=== PATIENT | female | born 1935 | race African-American/Black ===

== ENCOUNTER 2017-10-21 09:44 | Inpatient (IN) ==
[2017-10-21] MEDS ORDERED: DIPH/TET/ACEL PERT BOOSTER VACCINE 0.5 ML VIAL IM ONE ×2 (10:08→12:14)
[2017-10-21 11:05] LABS: Basophils % 0.1 % (0.0-0.8); Eosinophils # 0.1 10*3/uL (0.0-0.87); Eosinophils % 0.8 % (0.00-10.9); Hematocrit 25.8 VOL% (35.7-47.0); Hemoglobin 8.5 GM/DL (12.0-16.0); Immature Granulocytes % 0.4 %; Immature Granulocytes Absolute 0.03 #; Lymphocytes # 0.9 10*3/uL (1.4-4.0); Lymphocytes % 12.8 % (21.3-54.2); Mean Corpuscular HGB Conc 32.9 GM/DL (32-36); Mean Corpuscular Hemoglobin 30 PG (27-34); Mean Corpuscular Volume 89.6 FL (87-102); Mean Platelet Volume 10.4 FL (9.6-12.0); Monocytes # 0.8 10*3/uL (0.11-0.8); Monocytes % 11.1 % (1.7-12.7); Neutrophils # 5.3 10*3/uL (1.4-7.4); Neutrophils % 74.8 % (38.7-73.9); Platelet Count 220 T/CUMM (130-400); Red Blood Count 2.88 MC/CUMM (3.8-5.5); Red Cell Distribution Width 17.2 % (9.3-17.3); White Blood Count 7.1 T/CUMM (4-12)
[2017-10-21 11:17] LABS: INR 2.6
[2017-10-21 11:21] LABS: Apearance,Urine CLEAR (Clear); Bacteria,Urine Occasional /HPF (Few); Bilirubin,Urine Negative (Negative); Blood, Urine Negative (Negative); Glucose,Urine (UA) Negative (Negative); Ketones,Urine Negative (Negative); Mucus,Urine Occasional /LPF (Occasional); Nitrite,Urine Negative (Negative); Protein,Urine Negative; RBC,Urine <1 /HPF (0-4); Squamous Epithelial Cell,Urine Occasional /HPF (0-10); Urine Color Yellow (Yellow); Urine Specific Gravity 1.008 (1.001-1.035); Urine Urobilinogen < 2.0 EU/DL (0.2-1.0); WBC,Urine <1 /HPF (0-6)
[2017-10-21 11:24] LABS: PT Patient Result 26.1 SECS
[2017-10-21 11:25] LABS: Barbiturates Screen,Urine Negative (Negative); Benzodiazepines Screen,Urine Negative (Negative); Cannabinoid Screen,Urine Negative (Negative); Opiate Screen,Urine Negative (Negative); Phencyclidine Screen,Urine Negative (Negative)
[2017-10-21 11:48] LABS: Alanine Aminotransferase 25 U/L (13-56); Alkaline Phosphatase 144 U/L (45-117); Aspartate Amino Transferase 66 U/L (0-37); Blood Urea Nitrogen 34 MG/DL (7-18); Calcium 8.6 MG/DL (8.5-10.1); Glucose 168 MG/DL (74-106); Osmolality,Calculated 271.8 MOS/KG (273-304); Potassium 5.3 MMOL/L (3.5-5.1); Sodium 130 MMOL/L (136-145); Total Protein 7.9 G/DL (6.4-8.3); Troponin I Only < 0.015 NG/ML (0.00-0.045)
[2017-10-21] MEDS ORDERED: ceFAZolin 1,000 MG VIAL ONE (12:14)
[2017-10-21] MEDS ORDERED: LABETALOL 20 MG/4 ML SYRINGE IV PRN (14:15)
[2017-10-21] MEDS ORDERED: MORPHINE 2 MG/1 ML SYRINGE IV PRN (14:15)
[2017-10-21] MEDS ORDERED: ONDANSETRON 4 MG/2 ML VIAL IV PRN (14:15)
[2017-10-21] MEDS ORDERED: DEXTROSE 50% 25 GM/50 ML VIAL IV PRN (14:15)
[2017-10-21] MEDS ORDERED: GLUCAGON 1 MG VIAL IM PRN (14:15)
[2017-10-21] MEDS ORDERED: SODIUM POLYSTYRENE SULFATE 15 GM/60 ML BOTTLE RECTAL STA (14:31)
[2017-10-21] MEDS ORDERED: SODIUM POLYSTYRENE SULFATE 15 GM/60 ML BOTTLE ONE (17:56)
[2017-10-21] MEDS: SODIUM CHLORIDE 0.9% 1,000 ML IV SCH (21:28)
[2017-10-22 07:27] LABS: Basophils % 0.4 % (0.0-0.8); Eosinophils # 0.1 10*3/uL (0.0-0.87); Eosinophils % 1.7 % (0.00-10.9); Hematocrit 22.9 VOL% (35.7-47.0); Immature Granulocytes % 0.6 %; Immature Granulocytes Absolute 0.04 #; Lymphocytes # 1.1 10*3/uL (1.4-4.0); Lymphocytes % 16.3 % (21.3-54.2); Mean Corpuscular HGB Conc 33.6 GM/DL (32-36); Mean Corpuscular Hemoglobin 30 PG (27-34); Mean Corpuscular Volume 88.4 FL (87-102); Mean Platelet Volume 9.5 FL (9.6-12.0); Monocytes # 0.7 10*3/uL (0.11-0.8); Monocytes % 10.3 % (1.7-12.7); NRBC # 0.02 10*3/uL; Neutrophils # 4.9 10*3/uL (1.4-7.4); Neutrophils % 70.7 % (38.7-73.9); Platelet Count 184 T/CUMM (130-400); Red Blood Count 2.59 MC/CUMM (3.8-5.5); White Blood Count 6.9 T/CUMM (4-12)
[2017-10-22 07:35] LABS: Hemoglobin 7.7 GM/DL (12.0-16.0)
[2017-10-22 07:39] LABS: Calcium 8.3 MG/DL (8.5-10.1); Risk Ratio 2.42; VLDL CHOLESTEROL 8.6 MG/DL
[2017-10-22] MEDS: ASPIRIN EC 81 MG TABLET PO SCH ×2 (08:01→09:45)
[2017-10-22] MEDS: INSULIN LISPRO 100 UNIT/ML SUBCUT SCH ×5 (08:03→21:49)
[2017-10-22] MEDS ORDERED: SODIUM CHLORIDE 0.9% 1,000 ML IV PRN (08:20)
[2017-10-22] MEDS ORDERED: TUBERCULIN SKIN TEST 0.1 ML SYRINGE INTRADERM ONE (09:43)
[2017-10-22] MEDS: PANTOPRAZOLE 40 MG TABLET PO SCH (09:46)
[2017-10-22] MEDS: SODIUM CHLORIDE 0.9% 1,000 ML IV SCH (10:28)
[2017-10-22] MEDS ORDERED: FAMOTIDINE PO SCH (17:00)
[2017-10-22] MEDS ORDERED: PANTOPRAZOLE 40 MG TABLET PO SCH (17:00)
[2017-10-22] MEDS: LOSARTAN/HCTZ 50-12.5 MG TABLET PO SCH (19:26)
[2017-10-22] MEDS: BACITRACIN OINT 0.9 GM PACK TOP SCH (19:26)
[2017-10-22] MEDS: ZIPRASIDONE 20 MG CAPSULE PO SCH (19:26)
[2017-10-22] MEDS: FLUTICASONE 50 MCG NASAL SPRAY 16 GM BOTTLE BOTH NARES SCH (19:27)
[2017-10-22] MEDS: FAMOTIDINE 20 MG TABLET PO SCH (21:49)
[2017-10-22] MEDS: amLODIPine 10 MG TABLET PO SCH (21:49)
[2017-10-22] MEDS: AMITRIPTYLINE 100 MG TABLET PO SCH (21:49)
[2017-10-22 23:00] LABS: INR 2.1
[2017-10-22 23:01] LABS: PT Patient Result 21.9 SECS
[2017-10-23] MEDS: WARFARIN 4 MG TABLET PO SCH ×3 (00:26→18:19)
[2017-10-23 03:43] LABS: Basophils % 0.2 % (0.0-0.8); Eosinophils # 0.1 10*3/uL (0.0-0.87); Eosinophils % 1.4 % (0.00-10.9); Hematocrit 26.6 VOL% (35.7-47.0); Hemoglobin 9.1 GM/DL (12.0-16.0); Immature Granulocytes % 0.5 %; Immature Granulocytes Absolute 0.03 #; Lymphocytes # 1.1 10*3/uL (1.4-4.0); Lymphocytes % 16.5 % (21.3-54.2); Mean Corpuscular HGB Conc 34.2 GM/DL (32-36); Mean Corpuscular Hemoglobin 30 PG (27-34); Mean Corpuscular Volume 86.6 FL (87-102); Mean Platelet Volume 9.4 FL (9.6-12.0); Monocytes # 0.9 10*3/uL (0.11-0.8); Neutrophils # 4.5 10*3/uL (1.4-7.4); Neutrophils % 68.4 % (38.7-73.9); Platelet Count 177 T/CUMM (130-400); Red Blood Count 3.07 MC/CUMM (3.8-5.5); Red Cell Distribution Width 16.4 % (9.3-17.3); White Blood Count 6.6 T/CUMM (4-12)
[2017-10-23 04:05] LABS: Calcium 8.2 MG/DL (8.5-10.1); Osmolality,Calculated 272.1 MOS/KG (273-304); Potassium 3.8 MMOL/L (3.5-5.1)
[2017-10-23] MEDS: SODIUM CHLORIDE 0.9% 1,000 ML IV SCH ×2 (06:27→13:20)
[2017-10-23] MEDS: BACITRACIN OINT 0.9 GM PACK TOP SCH (08:42)
[2017-10-23] MEDS: FLUTICASONE 50 MCG NASAL SPRAY 16 GM BOTTLE BOTH NARES SCH (08:42)
[2017-10-23] MEDS: LOSARTAN/HCTZ 50-12.5 MG TABLET PO SCH (08:42)
[2017-10-23] MEDS: FAMOTIDINE 20 MG TABLET PO SCH ×2 (08:42→21:50)
[2017-10-23] MEDS: PANTOPRAZOLE 40 MG TABLET PO SCH ×2 (08:42→21:50)
[2017-10-23] MEDS: LINACLOTIDE 145 MCG CAPSULE PO SCH (08:42)
[2017-10-23] MEDS: ZIPRASIDONE 20 MG CAPSULE PO SCH ×2 (08:42→18:18)
[2017-10-23] MEDS: amLODIPine 10 MG TABLET PO SCH ×2 (08:42→21:50)
[2017-10-23] MEDS: ACETAMINOPHEN 325 MG TABLET PO PRN ×2 (08:50→21:51)
[2017-10-23] MEDS: INSULIN LISPRO 100 UNIT/ML SUBCUT SCH ×5 (10:45→21:55)
[2017-10-23] MEDS: AMITRIPTYLINE 100 MG TABLET PO SCH (21:50)
[2017-10-24 05:58] LABS: Basophils % 0.3 % (0.0-0.8); Eosinophils # 0.1 10*3/uL (0.0-0.87); Eosinophils % 1.1 % (0.00-10.9); Hematocrit 26.3 VOL% (35.7-47.0); Hemoglobin 8.8 GM/DL (12.0-16.0); Immature Granulocytes % 0.4 %; Immature Granulocytes Absolute 0.03 #; Lymphocytes # 1.3 10*3/uL (1.4-4.0); Lymphocytes % 16.9 % (21.3-54.2); Mean Corpuscular HGB Conc 33.5 GM/DL (32-36); Mean Corpuscular Hemoglobin 30 PG (27-34); Mean Corpuscular Volume 88.6 FL (87-102); Monocytes # 1.1 10*3/uL (0.11-0.8); Monocytes % 14.3 % (1.7-12.7); Neutrophils # 5.1 10*3/uL (1.4-7.4); Platelet Count 173 T/CUMM (130-400); Red Blood Count 2.97 MC/CUMM (3.8-5.5); White Blood Count 7.6 T/CUMM (4-12)
[2017-10-24 06:01] LABS: INR 1.4; PT Patient Result 14.6 SECS
[2017-10-24] MEDS: SODIUM CHLORIDE 0.9% 1,000 ML IV SCH (06:04)
[2017-10-24 06:40] LABS: Calcium 8.4 MG/DL (8.5-10.1); Osmolality,Calculated 275.8 MOS/KG (273-304); Potassium 3.9 MMOL/L (3.5-5.1)
[2017-10-24] MEDS: LOSARTAN/HCTZ 50-12.5 MG TABLET PO SCH (08:42)
[2017-10-24] MEDS: FAMOTIDINE 20 MG TABLET PO SCH ×2 (08:42→21:50)
[2017-10-24] MEDS: ACETAMINOPHEN 325 MG TABLET PO PRN (08:42)
[2017-10-24] MEDS: PANTOPRAZOLE 40 MG TABLET PO SCH ×2 (08:42→21:50)
[2017-10-24] MEDS: amLODIPine 10 MG TABLET PO SCH ×2 (08:42→21:43)
[2017-10-24] MEDS: ZIPRASIDONE 20 MG CAPSULE PO SCH ×2 (08:42→18:05)
[2017-10-24] MEDS: FLUTICASONE 50 MCG NASAL SPRAY 16 GM BOTTLE BOTH NARES SCH (08:43)
[2017-10-24] MEDS: INSULIN LISPRO 100 UNIT/ML SUBCUT SCH ×4 (08:43→21:50)
[2017-10-24] MEDS: LINACLOTIDE 145 MCG CAPSULE PO SCH (08:43)
[2017-10-24] MEDS: BACITRACIN OINT 0.9 GM PACK TOP SCH (08:43)
[2017-10-24] MEDS ORDERED: WARFARIN 5 MG TABLET ONE (17:45)
[2017-10-24] MEDS ORDERED: WARFARIN 3 MG TABLET ONE (17:45)
[2017-10-24] MEDS: WARFARIN 4 MG TABLET PO SCH (17:51)
[2017-10-24] MEDS: AMITRIPTYLINE 100 MG TABLET PO SCH (21:43)
[2017-10-25] MEDS: SODIUM CHLORIDE 0.9% 1,000 ML IV SCH ×2 (04:59→20:42)
[2017-10-25 06:38] LABS: Basophils % 0.1 % (0.0-0.8); Eosinophils % 0.3 % (0.00-10.9); Hematocrit 25.6 VOL% (35.7-47.0); Hemoglobin 8.4 GM/DL (12.0-16.0); Immature Granulocytes % 0.4 %; Immature Granulocytes Absolute 0.04 #; Lymphocytes # 1.5 10*3/uL (1.4-4.0); Lymphocytes % 16.2 % (21.3-54.2); Mean Corpuscular HGB Conc 32.8 GM/DL (32-36); Mean Corpuscular Hemoglobin 29 PG (27-34); Mean Corpuscular Volume 88.3 FL (87-102); Mean Platelet Volume 9.1 FL (9.6-12.0); Monocytes # 1.3 10*3/uL (0.11-0.8); Neutrophils # 6.4 10*3/uL (1.4-7.4); Platelet Count 179 T/CUMM (130-400); Red Cell Distribution Width 15.9 % (9.3-17.3); White Blood Count 9.2 T/CUMM (4-12)
[2017-10-25 06:45] LABS: INR 1.4; PT Patient Result 14.7 SECS
[2017-10-25 07:07] LABS: Calcium 8.4 MG/DL (8.5-10.1); Osmolality,Calculated 273.1 MOS/KG (273-304)
[2017-10-25] MEDS: INSULIN LISPRO 100 UNIT/ML SUBCUT SCH ×4 (08:28→20:41)
[2017-10-25] MEDS: PANTOPRAZOLE 40 MG TABLET PO SCH ×2 (09:31→20:41)
[2017-10-25] MEDS: ZIPRASIDONE 20 MG CAPSULE PO SCH ×2 (09:31→18:39)
[2017-10-25] MEDS: LOSARTAN/HCTZ 50-12.5 MG TABLET PO SCH (09:31)
[2017-10-25] MEDS: FAMOTIDINE 20 MG TABLET PO SCH ×2 (09:31→20:41)
[2017-10-25] MEDS: amLODIPine 10 MG TABLET PO SCH ×2 (09:31→20:41)
[2017-10-25] MEDS: BACITRACIN OINT 0.9 GM PACK TOP SCH (09:31)
[2017-10-25] MEDS: ASPIRIN EC 81 MG TABLET PO SCH (09:31)
[2017-10-25] MEDS: FLUTICASONE 50 MCG NASAL SPRAY 16 GM BOTTLE BOTH NARES SCH (09:32)
[2017-10-25] MEDS: LINACLOTIDE 145 MCG CAPSULE PO SCH (09:32)
[2017-10-25] MEDS ORDERED: WARFARIN 3 MG TABLET ONE (18:36)
[2017-10-25] MEDS ORDERED: WARFARIN 5 MG TABLET ONE (18:36)
[2017-10-25] MEDS: WARFARIN 4 MG TABLET PO SCH (18:40)
[2017-10-25] MEDS: AMITRIPTYLINE 100 MG TABLET PO SCH (20:41)
[2017-10-26] MEDS: SODIUM CHLORIDE 0.9% 1,000 ML IV SCH ×2 (02:55→21:57)
[2017-10-26 03:25] LABS: Basophils % 0.2 % (0.0-0.8); Eosinophils # 0.1 10*3/uL (0.0-0.87); Eosinophils % 1.3 % (0.00-10.9); Hematocrit 27.4 VOL% (35.7-47.0); Immature Granulocytes % 0.5 %; Immature Granulocytes Absolute 0.05 #; Lymphocytes # 1.3 10*3/uL (1.4-4.0); Mean Corpuscular HGB Conc 32.8 GM/DL (32-36); Mean Corpuscular Hemoglobin 29 PG (27-34); Mean Corpuscular Volume 88.1 FL (87-102); Mean Platelet Volume 9.1 FL (9.6-12.0); Monocytes # 1.2 10*3/uL (0.11-0.8); Monocytes % 12.5 % (1.7-12.7); Neutrophils # 7.1 10*3/uL (1.4-7.4); Neutrophils % 72.5 % (38.7-73.9); Platelet Count 215 T/CUMM (130-400); Red Blood Count 3.11 MC/CUMM (3.8-5.5); Red Cell Distribution Width 15.9 % (9.3-17.3); White Blood Count 9.8 T/CUMM (4-12)
[2017-10-26 03:30] LABS: INR 1.4; PT Patient Result 14.5 SECS
[2017-10-26 03:53] LABS: Calcium 8.9 MG/DL (8.5-10.1); Osmolality,Calculated 273.4 MOS/KG (273-304); Potassium 4.3 MMOL/L (3.5-5.1)
[2017-10-26] MEDS: LOSARTAN/HCTZ 50-12.5 MG TABLET PO SCH (09:04)
[2017-10-26] MEDS: amLODIPine 10 MG TABLET PO SCH ×2 (09:05→23:26)
[2017-10-26] MEDS: ZIPRASIDONE 20 MG CAPSULE PO SCH ×2 (09:06→19:00)
[2017-10-26] MEDS: FAMOTIDINE 20 MG TABLET PO SCH ×2 (09:06→23:27)
[2017-10-26] MEDS: ASPIRIN EC 81 MG TABLET PO SCH (09:06)
[2017-10-26] MEDS: FLUTICASONE 50 MCG NASAL SPRAY 16 GM BOTTLE BOTH NARES SCH (09:07)
[2017-10-26] MEDS: PANTOPRAZOLE 40 MG TABLET PO SCH ×2 (09:07→23:27)
[2017-10-26] MEDS: LINACLOTIDE 145 MCG CAPSULE PO SCH (09:08)
[2017-10-26] MEDS: BACITRACIN OINT 0.9 GM PACK TOP SCH (11:06)
[2017-10-26] MEDS: INSULIN LISPRO 100 UNIT/ML SUBCUT SCH ×4 (11:08→23:34)
[2017-10-26] MEDS ORDERED: WARFARIN 3 MG TABLET ONE (18:55)
[2017-10-26] MEDS ORDERED: WARFARIN 5 MG TABLET ONE (18:56)
[2017-10-26] MEDS: WARFARIN 4 MG TABLET PO SCH (19:01)
[2017-10-26] MEDS: AMITRIPTYLINE 100 MG TABLET PO SCH (23:27)
[2017-10-27 07:13] LABS: Basophils % 0.3 % (0.0-0.8); Eosinophils # 0.1 10*3/uL (0.0-0.87); Eosinophils % 0.9 % (0.00-10.9); Hematocrit 26.2 VOL% (35.7-47.0); Hemoglobin 8.6 GM/DL (12.0-16.0); Immature Granulocytes % 0.5 %; Immature Granulocytes Absolute 0.05 #; Lymphocytes # 1.6 10*3/uL (1.4-4.0); Lymphocytes % 15.8 % (21.3-54.2); Mean Corpuscular HGB Conc 32.8 GM/DL (32-36); Mean Corpuscular Hemoglobin 29 PG (27-34); Mean Corpuscular Volume 88.8 FL (87-102); Mean Platelet Volume 9.1 FL (9.6-12.0); Monocytes # 1.2 10*3/uL (0.11-0.8); Neutrophils % 70.5 % (38.7-73.9); Platelet Count 230 T/CUMM (130-400); Red Blood Count 2.95 MC/CUMM (3.8-5.5); Red Cell Distribution Width 15.8 % (9.3-17.3)
[2017-10-27 07:28] LABS: INR 1.4; PT Patient Result 14.7 SECS
[2017-10-27] MEDS: INSULIN LISPRO 100 UNIT/ML SUBCUT SCH ×4 (07:45→22:57)
[2017-10-27] MEDS: LINACLOTIDE 145 MCG CAPSULE PO SCH (07:45)
[2017-10-27 08:10] LABS: Calcium 8.5 MG/DL (8.5-10.1); Osmolality,Calculated 274.2 MOS/KG (273-304); Potassium 4.6 MMOL/L (3.5-5.1)
[2017-10-27] MEDS: LOSARTAN/HCTZ 50-12.5 MG TABLET PO SCH (09:38)
[2017-10-27] MEDS: BACITRACIN OINT 0.9 GM PACK TOP SCH (10:37)
[2017-10-27] MEDS: amLODIPine 10 MG TABLET PO SCH ×2 (10:38→22:48)
[2017-10-27] MEDS: FAMOTIDINE 20 MG TABLET PO SCH ×2 (10:38→22:48)
[2017-10-27] MEDS: ZIPRASIDONE 20 MG CAPSULE PO SCH ×2 (10:38→19:00)
[2017-10-27] MEDS: PANTOPRAZOLE 40 MG TABLET PO SCH ×2 (10:39→22:48)
[2017-10-27] MEDS: ASPIRIN EC 81 MG TABLET PO SCH (10:39)
[2017-10-27] MEDS: FLUTICASONE 50 MCG NASAL SPRAY 16 GM BOTTLE BOTH NARES SCH (10:41)
[2017-10-27] MEDS: ACETAMINOPHEN 325 MG TABLET PO PRN ×2 (12:18→19:03)
[2017-10-27 16:03] LABS: Basophils % 0.1 % (0.0-0.8); Hematocrit 25.8 VOL% (35.7-47.0); Hemoglobin 8.6 GM/DL (12.0-16.0); Immature Granulocytes % 0.6 %; Immature Granulocytes Absolute 0.07 #; Lymphocytes # 0.9 10*3/uL (1.4-4.0); Lymphocytes % 7.5 % (21.3-54.2); Mean Corpuscular HGB Conc 33.3 GM/DL (32-36); Mean Corpuscular Hemoglobin 30 PG (27-34); Mean Corpuscular Volume 88.7 FL (87-102); Mean Platelet Volume 9.1 FL (9.6-12.0); Monocytes # 1.2 10*3/uL (0.11-0.8); Monocytes % 10.1 % (1.7-12.7); Neutrophils # 9.7 10*3/uL (1.4-7.4); Neutrophils % 81.7 % (38.7-73.9); Platelet Count 232 T/CUMM (130-400); Red Blood Count 2.91 MC/CUMM (3.8-5.5); Red Cell Distribution Width 15.9 % (9.3-17.3); White Blood Count 11.8 T/CUMM (4-12)
[2017-10-27 16:23] LABS: Apearance,Urine CLOUDY (Clear); Bacteria,Urine Occasional /HPF (Few); Bilirubin,Urine Negative (Negative); Blood, Urine Moderate mg/dL (Negative); Glucose,Urine (UA) Negative (Negative); Ketones,Urine Negative (Negative); Mucus,Urine Occasional /LPF (Occasional); Nitrite,Urine Negative (Negative); Protein,Urine 30 MG/DL; RBC,Urine 22 /HPF (0-4); Squamous Epithelial Cell,Urine Occasional /HPF (0-10); Urine Color Yellow (Yellow); Urine Specific Gravity 1.011 (1.001-1.035); Urine Urobilinogen < 2.0 EU/DL (0.2-1.0); WBC,Urine 7 /HPF (0-6)
[2017-10-27] MEDS ORDERED: WARFARIN 5 MG TABLET ONE (18:54)
[2017-10-27] MEDS ORDERED: WARFARIN 3 MG TABLET ONE (18:54)
[2017-10-27] MEDS: cefTRIAXone 1,000 MG in SYRINGE 1 EACH IV SCH (18:59)
[2017-10-27] MEDS: SODIUM CHLORIDE 0.9% 1,000 ML IV SCH (18:59)
[2017-10-27] MEDS: WARFARIN 4 MG TABLET PO SCH (19:00)
[2017-10-27] MEDS: AMITRIPTYLINE 100 MG TABLET PO SCH (22:48)
[2017-10-28 06:28] LABS: INR 1.7; PT Patient Result 17.7 SECS
[2017-10-28] MEDS: INSULIN LISPRO 100 UNIT/ML SUBCUT SCH ×4 (08:34→21:11)
[2017-10-28] MEDS: ZIPRASIDONE 20 MG CAPSULE PO SCH ×2 (08:49→18:00)
[2017-10-28] MEDS: LOSARTAN/HCTZ 50-12.5 MG TABLET PO SCH (08:49)
[2017-10-28] MEDS: PANTOPRAZOLE 40 MG TABLET PO SCH ×2 (08:49→21:11)
[2017-10-28] MEDS: amLODIPine 10 MG TABLET PO SCH ×2 (08:49→21:11)
[2017-10-28] MEDS: LINACLOTIDE 145 MCG CAPSULE PO SCH (08:49)
[2017-10-28] MEDS: ASPIRIN EC 81 MG TABLET PO SCH (08:49)
[2017-10-28] MEDS: FAMOTIDINE 20 MG TABLET PO SCH ×2 (08:49→21:11)
[2017-10-28] MEDS: BACITRACIN OINT 0.9 GM PACK TOP SCH (13:04)
[2017-10-28] MEDS: FLUTICASONE 50 MCG NASAL SPRAY 16 GM BOTTLE BOTH NARES SCH (13:04)
[2017-10-28] MEDS: SODIUM CHLORIDE 0.9% 1,000 ML IV SCH (14:37)
[2017-10-28] MEDS: cefTRIAXone 1,000 MG in SYRINGE 1 EACH IV SCH (17:24)
[2017-10-28] MEDS: WARFARIN 4 MG TABLET PO SCH (17:25)
[2017-10-28] MEDS: AMITRIPTYLINE 100 MG TABLET PO SCH (21:11)
[2017-10-29] MEDS: INSULIN LISPRO 100 UNIT/ML SUBCUT SCH ×4 (08:39→21:01)
[2017-10-29] MEDS: amLODIPine 10 MG TABLET PO SCH ×2 (09:43→21:00)
[2017-10-29] MEDS: LOSARTAN/HCTZ 50-12.5 MG TABLET PO SCH (09:43)
[2017-10-29] MEDS: PANTOPRAZOLE 40 MG TABLET PO SCH ×2 (09:43→21:00)
[2017-10-29] MEDS: FAMOTIDINE 20 MG TABLET PO SCH ×2 (09:43→21:00)
[2017-10-29] MEDS: ASPIRIN EC 81 MG TABLET PO SCH (09:43)
[2017-10-29] MEDS: FLUTICASONE 50 MCG NASAL SPRAY 16 GM BOTTLE BOTH NARES SCH (09:44)
[2017-10-29] MEDS: BACITRACIN OINT 0.9 GM PACK TOP SCH (09:44)
[2017-10-29] MEDS: ZIPRASIDONE 20 MG CAPSULE PO SCH ×2 (09:44→18:05)
[2017-10-29] MEDS: LINACLOTIDE 145 MCG CAPSULE PO SCH (09:46)
[2017-10-29] MEDS: cefTRIAXone 1,000 MG in SYRINGE 1 EACH IV SCH (16:28)
[2017-10-29] MEDS: SODIUM CHLORIDE 0.9% 1,000 ML IV SCH (16:29)
[2017-10-29] MEDS ORDERED: WARFARIN 3 MG TABLET ONE (18:00)
[2017-10-29] MEDS ORDERED: WARFARIN 5 MG TABLET ONE (18:01)
[2017-10-29] MEDS: WARFARIN 4 MG TABLET PO SCH (18:05)
[2017-10-29] MEDS: AMITRIPTYLINE 100 MG TABLET PO SCH (21:00)
[2017-10-30] MEDS: SODIUM CHLORIDE 0.9% 1,000 ML IV SCH (03:09)
[2017-10-30] MEDS: FAMOTIDINE 20 MG TABLET PO SCH (09:32)
[2017-10-30] MEDS: LOSARTAN/HCTZ 50-12.5 MG TABLET PO SCH (09:32)
[2017-10-30] MEDS: ASPIRIN EC 81 MG TABLET PO SCH (09:32)
[2017-10-30] MEDS: ZIPRASIDONE 20 MG CAPSULE PO SCH (09:32)
[2017-10-30] MEDS: BACITRACIN OINT 0.9 GM PACK TOP SCH (09:32)
[2017-10-30] MEDS: amLODIPine 10 MG TABLET PO SCH (09:32)
[2017-10-30] MEDS: FLUTICASONE 50 MCG NASAL SPRAY 16 GM BOTTLE BOTH NARES SCH (09:32)
[2017-10-30] MEDS: PANTOPRAZOLE 40 MG TABLET PO SCH (09:32)
[2017-10-30] MEDS: LINACLOTIDE 145 MCG CAPSULE PO SCH (09:33)
[2017-10-30] MEDS: INSULIN LISPRO 100 UNIT/ML SUBCUT SCH ×2 (09:33→11:33)
[2017-10-30 11:55] VITALS: BP 142/73
== END 2017-10-30 11:56 | DRG 57 ==
LOC: N.ED 09:44 → N.EDINP 12:11 → SUATTDRO 12:11 → N.5E 18:15
PROVIDERS: ATTEND Internal Medicine Geriatric Medicine

== ENCOUNTER 2020-09-20 08:32 | Inpatient (IN) ==
[2020-09-20] MEDS ORDERED: SODIUM CHLORIDE 0.9% 1,000 ML IV STA (08:48)
[2020-09-20] MEDS ORDERED: SODIUM CHLORIDE 0.9% 1,000 ML IV PRN ×3 (08:55→11:36)
[2020-09-20 09:17] LABS: Basophils % 0.1 % (0.0-0.8); Immature Granulocytes % 4.4 %; Immature Granulocytes Absolute 0.66 #; Lymphocytes # 1.8 10*3/uL (1.4-4.0); Lymphocytes % 11.7 % (21.3-54.2); Mean Corpuscular HGB Conc 30.8 GM/DL (32-36); Mean Corpuscular Volume 88.6 FL (87-102); Mean Platelet Volume 10.1 FL (9.6-12.0); Monocytes % 5.2 % (1.7-12.7); NRBC # 0.46 10*3/uL; Neutrophils % 78.6 % (38.7-73.9); Platelet Count 268 T/CUMM (130-400); Red Blood Count 1.76 MC/CUMM (3.8-5.5); Red Cell Distribution Width 19.8 % (9.3-17.3)
[2020-09-20 09:28] LABS: Hematocrit 15.6 VOL% (35.7-47.0); Hemoglobin 4.8 GM/DL (12.0-16.0)
[2020-09-20 09:43] LABS: Burr Cells Slight; Hypochromasia 2+; Lymphocytes 26 % (20-55); Microcytosis 1+; Nucleated Red Blood Cells 8 (0-5); Ovalocytes Slight; Platelet Estimate Adequate; Segmented Neutrophils 68 % (50-85); Total Cells Counted 100
[2020-09-20 10:11] LABS: Albumin 1.9 G/DL (3.4-5.0); Bilirubin,Total 0.4 MG/DL (0.2-1.0); Calcium 7.8 MG/DL (8.5-10.1); Osmolality,Calculated 301.5 MOS/KG (273-304); Total Protein 5.4 G/DL (6.4-8.3)
[2020-09-20 10:37] LABS: Amorphous Crystals,Urine Few /HPF (Few); Bilirubin,Urine Negative (Negative); Blood, Urine Small mg/dL (Negative); Glucose,Urine (UA) Negative (Negative); Ketones,Urine Negative (Negative); Nitrite,Urine Negative (Negative); Protein,Urine 100 MG/DL; RBC,Urine 45 /HPF (0-4); Urine Appearance CLOUDY (Clear); Urine Color Amber (Yellow); Urine Specific Gravity 1.016 (1.001-1.035); Urine Urobilinogen < 2.0 EU/DL (0.2-1.0); WBC,Urine 4 /HPF (0-6)
[2020-09-20] MEDS ORDERED: ALBUTEROL 2.5 MG/3 ML NEB RESP TX PRN (11:11)
[2020-09-20] MEDS ORDERED: ACETAMINOPHEN 325 MG TABLET PO PRN (11:11)
[2020-09-20] MEDS ORDERED: SODIUM CHLORIDE 0.9% 1,000 ML IV ONE (11:15)
[2020-09-20] MEDS ORDERED: DEXTROSE 50% 25 GM/50 ML VIAL IV PRN (11:25)
[2020-09-20] MEDS ORDERED: GLUCAGON 1 MG VIAL IM PRN (11:25)
[2020-09-20 11:36] LABS: ABG Base Excess -11.7 MMOL/L (-2.5-2.5); ABG HCO3 14.5 MMOL/L (20-26); ABG Oxygen Saturation 31.9 % (95-100); ABG PCO2 36.1 MM HG (35-48); ABG PH 7.226 (7.35-7.45); ABG TCO2 14.9 MMOL/L (23-27)
[2020-09-20 11:38] LABS: ABG PO2 28.6 MM HG (80-95)
[2020-09-20 12:04] LABS: PT Patient Result > 178.9 SECS (9.8-11.9)
[2020-09-20 12:06] LABS: INR > 17.6
[2020-09-20] MEDS: PANTOPRAZOLE 40 MG VIAL IV SCH ×2 (12:10→23:41)
[2020-09-20] MEDS: SODIUM CHLORIDE 0.9% 1,000 ML IV SCH (12:37)
[2020-09-20] MEDS ORDERED: PHYTONADIONE 5 MG/5 ML ORAL.SYR PO STA (12:51)
[2020-09-20] MEDS ORDERED: PHYTONADIONE 10 MG/1 ML AMP SUBCUT ONE (12:51)
[2020-09-20] MEDS ORDERED: SILVER NITRATE STICK 1 EACH TOP ONE (12:55)
[2020-09-20 13:18] LABS: Hemoglobin 5.3 GM/DL (12.0-16.0)
[2020-09-20] MEDS: INSULIN LISPRO 100 UNIT/ML SUBCUT SCH ×2 (14:57→18:54)
[2020-09-20 16:38] LABS: Bacteria,Urine Occasional /HPF (Few); Bilirubin,Urine Negative (Negative); Blood, Urine Moderate mg/dL (Negative); Glucose,Urine (UA) Negative (Negative); Hyaline Casts,Urine 5 /LPF (0-3); Ketones,Urine Negative (Negative); Mucus,Urine Occasional /LPF (Occasional); Nitrite,Urine Negative (Negative); Protein,Urine 30 MG/DL; RBC,Urine 6 /HPF (0-4); Squamous Epithelial Cell,Urine Occasional /HPF (0-10); Urine Appearance CLOUDY (Clear); Urine Color Yellow (Yellow); Urine Specific Gravity 1.014 (1.001-1.035); Urine Urobilinogen < 2.0 EU/DL (0.2-1.0); WBC,Urine 62 /HPF (0-6)
[2020-09-20] MEDS ORDERED: NOREPINEPHRINE 8 MG in SODIUM CHLORIDE 0.9% 242 ML IV PRN (16:53)
[2020-09-20 17:37] LABS: Hematocrit 20.3 VOL% (35.7-47.0)
[2020-09-20 17:38] LABS: Hemoglobin 6.6 GM/DL (12.0-16.0)
[2020-09-20 17:55] LABS: INR 4.9; PT Patient Result 48.2 SECS (9.8-11.9)
[2020-09-21] MEDS: INSULIN LISPRO 100 UNIT/ML SUBCUT SCH ×4 (01:01→18:25)
[2020-09-21 04:30] LABS: Hematocrit 26.9 VOL% (35.7-47.0)
[2020-09-21 04:30] LABS: Basophils % 0.2 % (0.0-0.8); Eosinophils % 0.3 % (0.00-10.9); Hematocrit 26.9 VOL% (35.7-47.0); Hemoglobin 9.1 GM/DL (12.0-16.0); Immature Granulocytes % 4.5 %; Immature Granulocytes Absolute 0.53 #; Lymphocytes # 0.9 10*3/uL (1.4-4.0); Lymphocytes % 7.2 % (21.3-54.2); Mean Corpuscular HGB Conc 33.8 GM/DL (32-36); Mean Corpuscular Volume 84.1 FL (87-102); Monocytes % 4.7 % (1.7-12.7); NRBC # 0.37 10*3/uL; Neutrophils % 83.1 % (38.7-73.9); Platelet Count 147 T/CUMM (130-400); Red Cell Distribution Width 15.9 % (9.3-17.3); White Blood Count 11.8 T/CUMM (4-12)
[2020-09-21 05:04] LABS: Albumin 2.1 G/DL (3.4-5.0); Calcium 6.9 MG/DL (8.5-10.1); Osmolality,Calculated 308.7 MOS/KG (273-304); Total Protein 5.4 G/DL (6.4-8.3)
[2020-09-21 05:06] LABS: Band Neutrophils 1 % (0-10); Burr Cells Slight; Hypochromasia 1+; Lymphocytes 7 % (20-55); Microcytosis 1+; Ovalocytes Slight; Platelet Estimate Adequate; Segmented Neutrophils 91 % (50-85); Total Cells Counted 100
[2020-09-21 05:25] LABS: INR 3.1; PT Patient Result 31.1 SECS (9.8-11.9)
[2020-09-21] MEDS ORDERED: SODIUM CHLORIDE 0.9% 1,000 ML IV ONE (07:30)
[2020-09-21] MEDS ORDERED: ePHEDrine 50 MG/ML VIAL ONE (08:11)
[2020-09-21] MEDS ORDERED: CALCIUM GLUCONATE 1,000 MG in SODIUM CHLORIDE 0.9% 100 ML IV ONE (09:00)
[2020-09-21] MEDS ORDERED: SODIUM CHLORIDE 0.9% 1,000 ML IV PRN (09:34)
[2020-09-21] MEDS: DEXTROSE 5% NACL 0.45% 1,000 ML IV SCH (09:45)
[2020-09-21] MEDS: SODIUM CHLORIDE 0.9% 1,000 ML IV SCH (09:57)
[2020-09-21] MEDS ORDERED: ZIPRASIDONE 20 MG/1 ML VIAL IM ONE (10:08)
[2020-09-21 10:58] LABS: Hematocrit 24.3 VOL% (35.7-47.0); Hemoglobin 8.2 GM/DL (12.0-16.0)
[2020-09-21] MEDS ORDERED: VANCOMYCIN INJ 1,250 MG in SODIUM CHLORIDE 0.9% 250 ML IV PRN (11:16)
[2020-09-21] MEDS ORDERED: VANCOMYCIN INJ 1,500 MG in SODIUM CHLORIDE 0.9% 500 ML IV ONE (12:00)
[2020-09-21] MEDS ORDERED: ETOMIDATE 40 MG/20 ML VIAL IV ONE (12:30)
[2020-09-21] MEDS ORDERED: LIDOCAINE 2% 5 ML VIAL ONE (12:30)
[2020-09-21] MEDS ORDERED: PHENYLEPHRINE 1 MG/10 ML SYRINGE IV ONE (12:30)
[2020-09-21] MEDS: ZIPRASIDONE 20 MG CAPSULE PO SCH ×2 (12:52→20:31)
[2020-09-21] MEDS: HYDROCORTISONE 100 MG VIAL IV SCH ×2 (12:58→17:53)
[2020-09-21] MEDS: PANTOPRAZOLE 40 MG VIAL IV SCH (12:59)
[2020-09-21] MEDS: cefTRIAXone 1,000 MG in SYRINGE 1 EACH IV SCH (13:01)
[2020-09-21 13:31] LABS: Hematocrit 23.1 VOL% (35.7-47.0); Hemoglobin 7.7 GM/DL (12.0-16.0)
[2020-09-21] MEDS: FERROUS SULFATE 325 MG TABLET PO SCH ×2 (15:07→20:31)
[2020-09-21] MEDS: busPIRone 5 MG TABLET PO SCH (20:31)
[2020-09-21] MEDS: PREGABALIN 50 MG CAPSULE PO SCH (20:31)
[2020-09-21] MEDS: LATANOPROST 0.005% OPH SOLN 2.5 ML BOTTLE BOTH EYES SCH (20:32)
[2020-09-21] MEDS: AMITRIPTYLINE 50 MG TABLET PO SCH (20:32)
[2020-09-21] MEDS: POLYVINYL ALCOHOL 1.4% OPH SOLN 15 ML BOTTLE BOTH EYES SCH (20:32)
[2020-09-21 21:03] LABS: Hematocrit 21.5 VOL% (35.7-47.0); Hemoglobin 7.1 GM/DL (12.0-16.0)
[2020-09-21] MEDS: ZINC OXIDE PASTE 113 GM TUBE TOP SCH (22:05)
[2020-09-22] MEDS: DEXTROSE 5% NACL 0.45% 1,000 ML IV SCH ×4 (00:11→17:39)
[2020-09-22] MEDS: INSULIN LISPRO 100 UNIT/ML SUBCUT SCH ×4 (00:12→17:38)
[2020-09-22] MEDS: PANTOPRAZOLE 40 MG VIAL IV SCH ×2 (00:21→10:53)
[2020-09-22] MEDS: HYDROCORTISONE 100 MG VIAL IV SCH ×3 (00:32→16:52)
[2020-09-22 01:35] LABS: INR 1.5; PT Patient Result 16.1 SECS (9.8-11.9)
[2020-09-22 05:12] LABS: Basophils % 0.1 % (0.0-0.8); Hematocrit 21.8 VOL% (35.7-47.0); Hemoglobin 7.2 GM/DL (12.0-16.0); Immature Granulocytes % 1.8 %; Lymphocytes # 0.2 10*3/uL (1.4-4.0); Lymphocytes % 1.9 % (21.3-54.2); Mean Corpuscular Volume 84.8 FL (87-102); Mean Platelet Volume 8.9 FL (9.6-12.0); Monocytes % 2.5 % (1.7-12.7); NRBC # 0.06 10*3/uL; Neutrophils % 93.7 % (38.7-73.9); Platelet Count 150 T/CUMM (130-400); Red Blood Count 2.57 MC/CUMM (3.8-5.5); Red Cell Distribution Width 16.9 % (9.3-17.3); White Blood Count 11.3 T/CUMM (4-12)
[2020-09-22 05:19] LABS: Calcium 7.2 MG/DL (8.5-10.1); Osmolality,Calculated 313.3 MOS/KG (273-304)
[2020-09-22 06:02] LABS: Band Neutrophils 9 % (0-10); Lymphocytes 1 % (20-55); Nucleated Red Blood Cells 1 (0-5); Platelet Estimate Normal; Segmented Neutrophils 88 % (50-85); Total Cells Counted 100
[2020-09-22 06:03] LABS: Anisocytosis 2+; Burr Cells Few; Poikilocytosis 1+; Polychromasia Slight; Target Cells Few
[2020-09-22 06:53] LABS: INR 1.5; PT Patient Result 16.1 SECS (9.8-11.9)
[2020-09-22] MEDS ORDERED: MAGNESIUM SULF RIDER 4 GM in PREMIX 1 EACH IV PRN (07:18)
[2020-09-22] MEDS: LINACLOTIDE 145 MCG CAPSULE PO SCH (07:24)
[2020-09-22] MEDS ORDERED: POTASSIUM CHLORIDE RIDER 100 ML IV ONE (07:35)
[2020-09-22] MEDS: MAGNESIUM SULF RIDER 2 GM in PREMIX 1 EACH IV PRN ×2 (07:52→10:05)
[2020-09-22] MEDS: POTASSIUM CHLORIDE RIDER 20 MEQ in PREMIX 1 EACH IV PRN ×2 (07:52→10:05)
[2020-09-22] MEDS: POLYVINYL ALCOHOL 1.4% OPH SOLN 15 ML BOTTLE BOTH EYES SCH ×2 (09:00→20:44)
[2020-09-22] MEDS ORDERED: ZIPRASIDONE 20 MG CAPSULE PO SCH (09:00)
[2020-09-22] MEDS: ZINC OXIDE PASTE 113 GM TUBE TOP SCH ×2 (09:00→20:45)
[2020-09-22] MEDS: cefTRIAXone 1,000 MG in SYRINGE 1 EACH IV SCH (09:01)
[2020-09-22] MEDS: FERROUS SULFATE 325 MG TABLET PO SCH ×3 (10:03→20:44)
[2020-09-22] MEDS: busPIRone 5 MG TABLET PO SCH ×2 (10:03→20:45)
[2020-09-22] MEDS: FOLIC ACID 1 MG TABLET PO SCH (10:03)
[2020-09-22] MEDS: CYANOCOBALAMIN 500 MCG TABLET PO SCH (10:03)
[2020-09-22] MEDS: ZIPRASIDONE 20 MG CAPSULE PO SCH ×2 (10:03→20:45)
[2020-09-22] MEDS: PREGABALIN 50 MG CAPSULE PO SCH ×2 (10:03→20:45)
[2020-09-22] MEDS: ASCORBIC ACID 500 MG TABLET PO SCH (10:04)
[2020-09-22] MEDS ORDERED: SODIUM CHLORIDE 0.9% 1,000 ML IV PRN (10:36)
[2020-09-22 15:01] LABS: Hematocrit 25.7 VOL% (35.7-47.0)
[2020-09-22 15:03] LABS: Hemoglobin 8.7 GM/DL (12.0-16.0)
[2020-09-22] MEDS: LATANOPROST 0.005% OPH SOLN 2.5 ML BOTTLE BOTH EYES SCH (20:44)
[2020-09-22] MEDS: AMITRIPTYLINE 50 MG TABLET PO SCH (20:45)
[2020-09-22 21:05] LABS: Hematocrit 26.6 VOL% (35.7-47.0)
[2020-09-23] MEDS: PANTOPRAZOLE 40 MG VIAL IV SCH ×2 (00:20→11:30)
[2020-09-23] MEDS: INSULIN LISPRO 100 UNIT/ML SUBCUT SCH ×4 (00:25→17:43)
[2020-09-23] MEDS: HYDROCORTISONE 100 MG VIAL IV SCH ×3 (00:29→17:41)
[2020-09-23] MEDS: DEXTROSE 5% NACL 0.45% 1,000 ML IV SCH ×3 (03:40→13:51)
[2020-09-23 05:12] LABS: Basophils % 0.1 % (0.0-0.8); Hematocrit 26.6 VOL% (35.7-47.0); Immature Granulocytes % 1.4 %; Lymphocytes # 0.5 10*3/uL (1.4-4.0); Lymphocytes % 3.2 % (21.3-54.2); Mean Corpuscular HGB Conc 33.8 GM/DL (32-36); Mean Corpuscular Volume 84.4 FL (87-102); Mean Platelet Volume 9.4 FL (9.6-12.0); Monocytes % 3.4 % (1.7-12.7); NRBC # 0.09 10*3/uL; Neutrophils % 91.9 % (38.7-73.9); Platelet Count 142 T/CUMM (130-400); Red Blood Count 3.15 MC/CUMM (3.8-5.5); Red Cell Distribution Width 16.5 % (9.3-17.3); White Blood Count 14.4 T/CUMM (4-12)
[2020-09-23 05:23] LABS: Calcium 8.1 MG/DL (8.5-10.1); Osmolality,Calculated 311.7 MOS/KG (273-304)
[2020-09-23 05:29] LABS: INR 1.2; PT Patient Result 12.6 SECS (9.8-11.9)
[2020-09-23] MEDS: POTASSIUM CHLORIDE RIDER 20 MEQ in PREMIX 1 EACH IV PRN ×3 (05:54→11:36)
[2020-09-23 06:24] LABS: Anisocytosis 2+; Band Neutrophils 7 % (0-10); Burr Cells Few; Lymphocytes 5 % (20-55); Macrocytosis 1+; Nucleated Red Blood Cells 2 (0-5); Platelet Estimate Adequate; Polychromasia Slight; Segmented Neutrophils 85 % (50-85); Total Cells Counted 100
[2020-09-23] MEDS ORDERED: BISACODYL 5 MG TABLET PO SCH (07:00)
[2020-09-23] MEDS: LINACLOTIDE 145 MCG CAPSULE PO SCH (08:27)
[2020-09-23] MEDS: ZIPRASIDONE 20 MG CAPSULE PO SCH ×2 (08:28→21:49)
[2020-09-23] MEDS: POLYVINYL ALCOHOL 1.4% OPH SOLN 15 ML BOTTLE BOTH EYES SCH ×2 (08:28→21:49)
[2020-09-23] MEDS: CYANOCOBALAMIN 500 MCG TABLET PO SCH (08:28)
[2020-09-23] MEDS: busPIRone 5 MG TABLET PO SCH ×2 (08:28→21:49)
[2020-09-23] MEDS: ASCORBIC ACID 500 MG TABLET PO SCH (08:28)
[2020-09-23] MEDS: PREGABALIN 50 MG CAPSULE PO SCH ×2 (08:28→21:58)
[2020-09-23] MEDS: FOLIC ACID 1 MG TABLET PO SCH (08:28)
[2020-09-23] MEDS: FERROUS SULFATE 325 MG TABLET PO SCH ×3 (08:29→21:49)
[2020-09-23] MEDS: ZINC OXIDE PASTE 113 GM TUBE TOP SCH ×2 (08:29→21:49)
[2020-09-23] MEDS: cefTRIAXone 1,000 MG in SYRINGE 1 EACH IV SCH (09:05)
[2020-09-23] MEDS: POTASSIUM CHLORIDE RIDER 10 MEQ in PREMIX 1 EACH IV PRN (09:28)
[2020-09-23] MEDS ORDERED: VANCOMYCIN INJ 1,500 MG in SODIUM CHLORIDE 0.9% 500 ML IV ONE (10:00)
[2020-09-23] MEDS ORDERED: FUROSEMIDE 40 MG/4 ML VIAL IV ONE (13:54)
[2020-09-23] MEDS ORDERED: POLYETHYLENE GLYCOL 3350/ELECTROLYTES 4,000 ML BOTTLE PO ONE (18:00)
[2020-09-23] MEDS: AMITRIPTYLINE 50 MG TABLET PO SCH (21:49)
[2020-09-24] MEDS: LATANOPROST 0.005% OPH SOLN 2.5 ML BOTTLE BOTH EYES SCH ×2 (01:52→21:56)
[2020-09-24] MEDS: PANTOPRAZOLE 40 MG VIAL IV SCH ×3 (01:55→23:25)
[2020-09-24] MEDS: INSULIN LISPRO 100 UNIT/ML SUBCUT SCH ×4 (01:55→18:05)
[2020-09-24] MEDS: HYDROCORTISONE 100 MG VIAL IV SCH ×3 (01:57→17:45)
[2020-09-24] MEDS: DEXTROSE 5% NACL 0.45% 1,000 ML IV SCH (03:30)
[2020-09-24 06:26] LABS: Basophils % 0.1 % (0.0-0.8); Hematocrit 28.8 VOL% (35.7-47.0); Hemoglobin 9.7 GM/DL (12.0-16.0); Immature Granulocytes % 1.4 %; Immature Granulocytes Absolute 0.23 #; Lymphocytes # 0.8 10*3/uL (1.4-4.0); Mean Corpuscular HGB Conc 33.7 GM/DL (32-36); Mean Corpuscular Volume 86.2 FL (87-102); Mean Platelet Volume 9.9 FL (9.6-12.0); Monocytes % 4.4 % (1.7-12.7); NRBC # 0.09 10*3/uL; Neutrophils % 89.1 % (38.7-73.9); Platelet Count 136 T/CUMM (130-400); Red Blood Count 3.34 MC/CUMM (3.8-5.5); Red Cell Distribution Width 16.8 % (9.3-17.3)
[2020-09-24 06:40] LABS: Calcium 9.2 MG/DL (8.5-10.1); Osmolality,Calculated 302.8 MOS/KG (273-304)
[2020-09-24] MEDS ORDERED: DILTIAZEM 50 MG/10 ML VIAL IV ONE (08:30)
[2020-09-24] MEDS: POTASSIUM CHLORIDE RIDER 10 MEQ in PREMIX 1 EACH IV PRN ×5 (09:47→15:45)
[2020-09-24] MEDS: dilTIAZem Drip 125 MG/125 ML PREMIX IV SCH (10:50)
[2020-09-24] MEDS: cefTRIAXone 1,000 MG in SYRINGE 1 EACH IV SCH (11:50)
[2020-09-24] MEDS: CYANOCOBALAMIN 500 MCG TABLET PO SCH (11:51)
[2020-09-24] MEDS: busPIRone 5 MG TABLET PO SCH ×2 (11:51→21:49)
[2020-09-24] MEDS: ASCORBIC ACID 500 MG TABLET PO SCH (11:51)
[2020-09-24] MEDS: POTASSIUM CHLORIDE 20 MEQ TABLET PO SCH ×3 (11:51→16:59)
[2020-09-24] MEDS: FOLIC ACID 1 MG TABLET PO SCH (11:51)
[2020-09-24] MEDS: FERROUS SULFATE 325 MG TABLET PO SCH ×3 (11:51→21:49)
[2020-09-24] MEDS: LINACLOTIDE 145 MCG CAPSULE PO SCH (12:28)
[2020-09-24] MEDS: ZIPRASIDONE 20 MG CAPSULE PO SCH ×2 (12:40→21:49)
[2020-09-24] MEDS: PREGABALIN 25 MG CAPSULE PO SCH ×2 (12:40→21:49)
[2020-09-24] MEDS: POLYVINYL ALCOHOL 1.4% OPH SOLN 15 ML BOTTLE BOTH EYES SCH ×2 (13:13→21:49)
[2020-09-24] MEDS ORDERED: MAGNESIUM SULF RIDER 2 GM in PREMIX 1 EACH IV ONE (13:39)
[2020-09-24] MEDS ORDERED: DIGOXIN 0.5 MG/2 ML AMP IV ONE (13:43)
[2020-09-24] MEDS: PREGABALIN 50 MG CAPSULE PO SCH (13:48)
[2020-09-24 14:07] LABS: Basophils % 0.1 % (0.0-0.8); Hematocrit 28.3 VOL% (35.7-47.0); Hemoglobin 9.4 GM/DL (12.0-16.0); Immature Granulocytes % 1.6 %; Immature Granulocytes Absolute 0.26 #; Lymphocytes % 6.5 % (21.3-54.2); Mean Corpuscular HGB Conc 33.2 GM/DL (32-36); Mean Corpuscular Volume 86.3 FL (87-102); Mean Platelet Volume 9.6 FL (9.6-12.0); Monocytes % 3.9 % (1.7-12.7); NRBC # 0.09 10*3/uL; Neutrophils % 87.9 % (38.7-73.9); Platelet Count 137 T/CUMM (130-400); Red Blood Count 3.28 MC/CUMM (3.8-5.5); Red Cell Distribution Width 17.1 % (9.3-17.3); White Blood Count 15.8 T/CUMM (4-12)
[2020-09-24 14:18] LABS: Calcium 8.8 MG/DL (8.5-10.1)
[2020-09-24] MEDS: LEVOFLOXACIN INJ 500 MG in PREMIX 1 EACH IV SCH (14:19)
[2020-09-24] MEDS ORDERED: AMIODARONE INJ 150 MG in DEXTROSE 5% 100 ML IV ONE (14:57)
[2020-09-24] MEDS ORDERED: AMIODARONE INJ 450 MG in DEXTROSE 5% 241 ML IV SCH (15:00)
[2020-09-24] MEDS: ZINC OXIDE PASTE 113 GM TUBE TOP SCH ×2 (15:53→21:49)
[2020-09-24] MEDS ORDERED: SODIUM CHLORIDE 0.9% 1,000 ML IV ONE (16:46)
[2020-09-24] MEDS: AMITRIPTYLINE 50 MG TABLET PO SCH (21:49)
[2020-09-24] MEDS: AMIODARONE INJ 450 MG in DEXTROSE 5% 241 ML IV SCH (23:20)
[2020-09-25] MEDS: DEXTROSE 5% NACL 0.45% 1,000 ML IV SCH ×2 (00:53→12:16)
[2020-09-25] MEDS: INSULIN LISPRO 100 UNIT/ML SUBCUT SCH ×4 (02:17→18:27)
[2020-09-25] MEDS: HYDROCORTISONE 100 MG VIAL IV SCH ×2 (02:18→10:55)
[2020-09-25 07:47] LABS: Basophils % 0.2 % (0.0-0.8); Hematocrit 27.1 VOL% (35.7-47.0); Hemoglobin 8.8 GM/DL (12.0-16.0); Immature Granulocytes Absolute 0.35 #; Lymphocytes # 0.5 10*3/uL (1.4-4.0); Lymphocytes % 2.8 % (21.3-54.2); Mean Corpuscular HGB Conc 32.5 GM/DL (32-36); Mean Corpuscular Volume 87.7 FL (87-102); Mean Platelet Volume 9.3 FL (9.6-12.0); Monocytes % 2.9 % (1.7-12.7); NRBC # 0.05 10*3/uL; Neutrophils % 92.1 % (38.7-73.9); Platelet Count 115 T/CUMM (130-400); Red Blood Count 3.09 MC/CUMM (3.8-5.5); Red Cell Distribution Width 17.3 % (9.3-17.3); White Blood Count 17.7 T/CUMM (4-12)
[2020-09-25 08:07] LABS: Calcium 8.6 MG/DL (8.5-10.1); Lymphocytes 1 % (20-55); Osmolality,Calculated 295.4 MOS/KG (273-304); Platelet Estimate Decreased; Segmented Neutrophils 96 % (50-85); Total Cells Counted 100
[2020-09-25 08:08] LABS: Hypochromasia 1+; Microcytosis 1+
[2020-09-25] MEDS: ZIPRASIDONE 20 MG CAPSULE PO SCH ×2 (10:53→22:21)
[2020-09-25] MEDS: POTASSIUM CHLORIDE RIDER 10 MEQ in PREMIX 1 EACH IV PRN ×2 (10:53→12:15)
[2020-09-25] MEDS: FERROUS SULFATE 325 MG TABLET PO SCH ×3 (10:54→22:22)
[2020-09-25] MEDS: FOLIC ACID 1 MG TABLET PO SCH (10:54)
[2020-09-25] MEDS: cefTRIAXone 1,000 MG in SYRINGE 1 EACH IV SCH (10:54)
[2020-09-25] MEDS: AMIODARONE 200 MG TABLET PO SCH (10:54)
[2020-09-25] MEDS: PREGABALIN 25 MG CAPSULE PO SCH ×2 (10:54→22:21)
[2020-09-25] MEDS: ASCORBIC ACID 500 MG TABLET PO SCH (10:54)
[2020-09-25] MEDS: CYANOCOBALAMIN 500 MCG TABLET PO SCH (10:55)
[2020-09-25] MEDS: LINACLOTIDE 145 MCG CAPSULE PO SCH (10:55)
[2020-09-25] MEDS: busPIRone 5 MG TABLET PO SCH ×2 (10:55→22:21)
[2020-09-25] MEDS: PANTOPRAZOLE 40 MG VIAL IV SCH ×2 (10:55→22:31)
[2020-09-25] MEDS: dilTIAZem Drip 125 MG/125 ML PREMIX IV SCH (10:56)
[2020-09-25] MEDS: POLYVINYL ALCOHOL 1.4% OPH SOLN 15 ML BOTTLE BOTH EYES SCH ×2 (10:56→22:22)
[2020-09-25] MEDS: ZINC OXIDE PASTE 113 GM TUBE TOP SCH ×2 (10:56→22:22)
[2020-09-25] MEDS: LEVOFLOXACIN INJ 500 MG in PREMIX 1 EACH IV SCH (13:33)
[2020-09-25] MEDS: AMIODARONE INJ 450 MG in DEXTROSE 5% 241 ML IV SCH (13:37)
[2020-09-25] MEDS: SODIUM HYPOCHLORITE 0.25% IRRIG 473 ML BOTTLE TOP SCH (17:50)
[2020-09-25] MEDS ORDERED: HYDROCORTISONE 100 MG VIAL IV SCH (21:00)
[2020-09-25] MEDS: AMITRIPTYLINE 50 MG TABLET PO SCH (22:21)
[2020-09-25] MEDS: LATANOPROST 0.005% OPH SOLN 2.5 ML BOTTLE BOTH EYES SCH (22:23)
[2020-09-26] MEDS: INSULIN LISPRO 100 UNIT/ML SUBCUT SCH ×2 (01:03→06:41)
[2020-09-26] MEDS: AMIODARONE INJ 450 MG in DEXTROSE 5% 241 ML IV SCH (02:08)
[2020-09-26 05:46] LABS: Calcium 8.7 MG/DL (8.5-10.1); Osmolality,Calculated 298.8 MOS/KG (273-304)
[2020-09-26 05:58] LABS: Basophils % 0.1 % (0.0-0.8); Hematocrit 28.5 VOL% (35.7-47.0); Hemoglobin 9.3 GM/DL (12.0-16.0); Immature Granulocytes % 1.1 %; Immature Granulocytes Absolute 0.21 #; Lymphocytes # 0.7 10*3/uL (1.4-4.0); Lymphocytes % 3.5 % (21.3-54.2); Mean Corpuscular HGB Conc 32.6 GM/DL (32-36); Mean Corpuscular Volume 88.2 FL (87-102); Mean Platelet Volume 9.4 FL (9.6-12.0); Monocytes % 2.7 % (1.7-12.7); Neutrophils % 92.6 % (38.7-73.9); Platelet Count 117 T/CUMM (130-400); Red Blood Count 3.23 MC/CUMM (3.8-5.5); Red Cell Distribution Width 17.4 % (9.3-17.3); White Blood Count 19.5 T/CUMM (4-12)
[2020-09-26 06:02] LABS: Albumin 1.9 G/DL (3.4-5.0); Bilirubin,Total 0.7 MG/DL (0.2-1.0); Calcium 8.6 MG/DL (8.5-10.1); Osmolality,Calculated 298.8 MOS/KG (273-304); Total Protein 5.8 G/DL (6.4-8.3)
[2020-09-26 07:27] LABS: Anisocytosis 1+; Band Neutrophils 1 % (0-10); Hypochromasia 2+; Lymphocytes 3 % (20-55); Macrocytosis 1+; Ovalocytes 1+; Platelet Estimate Decreased; Polychromasia Few; Segmented Neutrophils 92 % (50-85); Target Cells 2+; Total Cells Counted 100
[2020-09-26] MEDS ORDERED: POTASSIUM CHLORIDE 20 MEQ TABLET PO ONE (07:30)
[2020-09-26] MEDS ORDERED: MAGNESIUM SULF RIDER 2 GM in PREMIX 1 EACH IV ONE (07:31)
[2020-09-26] MEDS ORDERED: HYDROCORTISONE 100 MG VIAL IV SCH (07:32)
[2020-09-26] MEDS: FERROUS SULFATE 325 MG TABLET PO SCH (07:59)
[2020-09-26] MEDS: busPIRone 5 MG TABLET PO SCH (08:00)
[2020-09-26] MEDS: AMIODARONE 200 MG TABLET PO SCH (08:00)
[2020-09-26] MEDS: PREGABALIN 25 MG CAPSULE PO SCH (08:01)
[2020-09-26] MEDS: LINACLOTIDE 145 MCG CAPSULE PO SCH (08:01)
[2020-09-26] MEDS: ASCORBIC ACID 500 MG TABLET PO SCH (08:01)
[2020-09-26] MEDS: FOLIC ACID 1 MG TABLET PO SCH (08:01)
[2020-09-26] MEDS: CYANOCOBALAMIN 500 MCG TABLET PO SCH (08:01)
[2020-09-26] MEDS: SODIUM HYPOCHLORITE 0.25% IRRIG 473 ML BOTTLE TOP SCH (08:02)
[2020-09-26] MEDS: dilTIAZem Drip 125 MG/125 ML PREMIX IV SCH (08:02)
[2020-09-26] MEDS: POLYVINYL ALCOHOL 1.4% OPH SOLN 15 ML BOTTLE BOTH EYES SCH (08:02)
[2020-09-26] MEDS: ZINC OXIDE PASTE 113 GM TUBE TOP SCH (08:02)
[2020-09-26] MEDS: ZIPRASIDONE 20 MG CAPSULE PO SCH (08:05)
[2020-09-26 08:15] VITALS: BP 140/82
[2020-09-26] MEDS ORDERED: METOPROLOL SUCCINATE XL 25 MG TABLET PO SCH (09:00)
[2020-09-26] MEDS: cefTRIAXone 1,000 MG in SYRINGE 1 EACH IV SCH (10:22)
[2020-09-26] MEDS: PANTOPRAZOLE 40 MG VIAL IV SCH (10:30)
[2020-10-02] MEDS ORDERED: AMIODARONE 200 MG TABLET PO SCH (09:00)
== END 2020-09-26 11:46 | DRG 813 ==
LOC: EDUNIT# → EDBD → N.ED 08:32 → SUATTDRO 11:11 → N.EDINP 11:11 → N.ICU 12:30 → N.3E 09-23 16:10 → N.TELEN 09-24 10:31
PROVIDERS: ADMIT Family Medicine; ATTEND Emergency Medicine

== ENCOUNTER 2020-10-08 05:58 | Inpatient (IN) ==
[2020-10-08] MEDS ORDERED: ALBUTEROL 2.5 MG/3 ML NEB RESP TX ONE (07:05)
[2020-10-08] MEDS ORDERED: LACTATED RINGERS 1,000 ML IV SCH (07:30)
[2020-10-08 07:35] LABS: Basophils % 0.2 % (0.0-0.8); Eosinophils % 0.1 % (0.00-10.9); Hematocrit 28.1 VOL% (35.7-47.0); Hemoglobin 8.8 GM/DL (12.0-16.0); Immature Granulocytes % 4.4 %; Immature Granulocytes Absolute 0.57 #; Lymphocytes # 1.6 10*3/uL (1.4-4.0); Lymphocytes % 12.2 % (21.3-54.2); Mean Corpuscular HGB Conc 31.3 GM/DL (32-36); Mean Corpuscular Volume 90.4 FL (87-102); Mean Platelet Volume 8.8 FL (9.6-12.0); Monocytes % 6.1 % (1.7-12.7); NRBC # 0.06 10*3/uL; Platelet Count 244 T/CUMM (130-400); Red Blood Count 3.11 MC/CUMM (3.8-5.5); Red Cell Distribution Width 17.5 % (9.3-17.3); White Blood Count 13.1 T/CUMM (4-12)
[2020-10-08 07:52] LABS: Band Neutrophils 2 % (0-10); Hypochromasia 1+; Lymphocytes 16 % (20-55); Microcytosis 1+; Myelocytes 2 %; Platelet Estimate Adequate; Segmented Neutrophils 77 % (50-85); Total Cells Counted 100
[2020-10-08 07:53] LABS: Ovalocytes Slight
[2020-10-08 07:54] LABS: Albumin 2.1 G/DL (3.4-5.0); Bilirubin,Total 0.4 MG/DL (0.2-1.0); Calcium 8.9 MG/DL (8.5-10.1); Osmolality,Calculated 288.8 MOS/KG (273-304); Total Protein 6.5 G/DL (6.4-8.3)
[2020-10-08] MEDS ORDERED: ACETAMINOPHEN 325 MG TABLET PO PRN (09:16)
[2020-10-08] MEDS ORDERED: DEXTROSE 50% 25 GM/50 ML VIAL IV PRN (09:16)
[2020-10-08] MEDS ORDERED: MORPHINE 4 MG/1 ML VIAL IV PRN (09:16)
[2020-10-08] MEDS ORDERED: ONDANSETRON 4 MG/2 ML VIAL IV PRN (09:16)
[2020-10-08] MEDS ORDERED: ALBUTEROL/IPRATROPIUM 3 ML NEB RESP TX PRN (09:16)
[2020-10-08] MEDS ORDERED: GLUCAGON 1 MG VIAL IM PRN (09:16)
[2020-10-08 10:06] LABS: Amorphous Crystals,Urine Occasional /HPF (Few); Bacteria,Urine Occasional /HPF (Few); Bilirubin,Urine Negative (Negative); Blood, Urine Negative (Negative); Glucose,Urine (UA) Negative (Negative); Ketones,Urine Negative (Negative); Mucus,Urine Occasional /LPF (Occasional); Nitrite,Urine Negative (Negative); Protein,Urine Negative; RBC,Urine 1 /HPF (0-4); Urine Appearance CLEAR (Clear); Urine Color Yellow (Yellow); Urine Specific Gravity 1.012 (1.001-1.035); Urine Urobilinogen < 2.0 EU/DL (0.2-1.0); WBC,Urine 2 /HPF (0-6)
[2020-10-08] MEDS ORDERED: LIDOCAINE 2% 5 ML VIAL ONE (11:38)
[2020-10-08] MEDS: INSULIN LISPRO 100 UNIT/ML SUBCUT SCH ×2 (14:36→18:51)
[2020-10-08] MEDS: PIPERACILLIN/TAZOBACTAM 3,375 MG in SODIUM CHLORIDE 0.9% 100 ML IV SCH ×2 (15:31→18:52)
[2020-10-08] MEDS: SODIUM HYPOCHLORITE 0.25% IRRIG 473 ML BOTTLE TOP SCH (15:33)
[2020-10-08] MEDS: LACTATED RINGERS 1,000 ML IV SCH (15:33)
[2020-10-08] MEDS: FERROUS SULFATE 325 MG TABLET PO SCH (19:12)
[2020-10-08] MEDS: MELATONIN 3 MG TABLET PO SCH (22:00)
[2020-10-08] MEDS: ZIPRASIDONE 20 MG CAPSULE PO SCH (22:00)
[2020-10-08] MEDS: PREGABALIN 50 MG CAPSULE PO SCH (22:01)
[2020-10-08] MEDS: MIRTAZAPINE 15 MG TABLET PO SCH (22:01)
[2020-10-08] MEDS: AMITRIPTYLINE 50 MG TABLET PO SCH (22:04)
[2020-10-08] MEDS: POLYVINYL ALCOHOL 1.4% OPH SOLN 15 ML BOTTLE BOTH EYES SCH (22:05)
[2020-10-08] MEDS: PANTOPRAZOLE 40 MG TABLET PO SCH (22:05)
[2020-10-08] MEDS: predniSONE 10 MG TABLET PO SCH (22:05)
[2020-10-08] MEDS: busPIRone 5 MG TABLET PO SCH (22:05)
[2020-10-08] MEDS: LATANOPROST 0.005% OPH SOLN 2.5 ML BOTTLE BOTH EYES SCH (22:06)
[2020-10-09 05:27] LABS: Basophils % 0.3 % (0.0-0.8); Eosinophils % 0.1 % (0.00-10.9); Immature Granulocytes % 4.3 %; Immature Granulocytes Absolute 0.51 #; Lymphocytes # 0.7 10*3/uL (1.4-4.0); Lymphocytes % 5.5 % (21.3-54.2); Mean Corpuscular Volume 90.1 FL (87-102); Mean Platelet Volume 9.2 FL (9.6-12.0); Monocytes % 3.1 % (1.7-12.7); NRBC # 0.03 10*3/uL; Neutrophils % 86.7 % (38.7-73.9); Platelet Count 267 T/CUMM (130-400); Red Blood Count 3.22 MC/CUMM (3.8-5.5); Red Cell Distribution Width 17.7 % (9.3-17.3); White Blood Count 11.9 T/CUMM (4-12)
[2020-10-09 05:47] LABS: Calcium 8.7 MG/DL (8.5-10.1); Osmolality,Calculated 287.7 MOS/KG (273-304)
[2020-10-09 05:50] LABS: Risk Ratio 3.11; VLDL CHOLESTEROL 28.6 MG/DL
[2020-10-09 05:52] LABS: % Iron Saturation 15.4 % (18-50)
[2020-10-09 06:16] LABS: Band Neutrophils 1 % (0-10); Hypochromasia 1+; Lymphocytes 3 % (20-55); Microcytosis 1+; Ovalocytes Slight; Platelet Estimate Adequate; Segmented Neutrophils 93 % (50-85); Total Cells Counted 100
[2020-10-09] MEDS: PIPERACILLIN/TAZOBACTAM 3,375 MG in SODIUM CHLORIDE 0.9% 100 ML IV SCH ×2 (07:06→18:11)
[2020-10-09] MEDS: AMIODARONE 200 MG TABLET PO SCH (08:19)
[2020-10-09] MEDS: ZIPRASIDONE 20 MG CAPSULE PO SCH ×2 (08:23→21:18)
[2020-10-09] MEDS ORDERED: BUPIVACAINE MPF 0.25% 30 ML VIAL ONE (08:41)
[2020-10-09] MEDS: FERROUS SULFATE 325 MG TABLET PO SCH ×3 (08:41→18:12)
[2020-10-09] MEDS ORDERED: LIDOCAINE 1%/EPI INJ 20 ML VIAL ONE (08:41)
[2020-10-09] MEDS: busPIRone 5 MG TABLET PO SCH ×2 (08:42→21:20)
[2020-10-09] MEDS: SODIUM HYPOCHLORITE 0.25% IRRIG 473 ML BOTTLE TOP SCH (08:42)
[2020-10-09] MEDS: INSULIN LISPRO 100 UNIT/ML SUBCUT SCH ×3 (08:42→17:36)
[2020-10-09] MEDS: POLYVINYL ALCOHOL 1.4% OPH SOLN 15 ML BOTTLE BOTH EYES SCH ×2 (08:42→21:15)
[2020-10-09] MEDS: ASCORBIC ACID 500 MG TABLET PO SCH (08:43)
[2020-10-09] MEDS: FOLIC ACID 1 MG TABLET PO SCH (08:43)
[2020-10-09] MEDS: CYANOCOBALAMIN 500 MCG TABLET PO SCH (08:43)
[2020-10-09] MEDS: PREGABALIN 50 MG CAPSULE PO SCH ×2 (08:43→21:27)
[2020-10-09] MEDS: PANTOPRAZOLE 40 MG TABLET PO SCH ×2 (08:43→21:19)
[2020-10-09] MEDS: predniSONE 10 MG TABLET PO SCH ×2 (08:43→21:19)
[2020-10-09] MEDS ORDERED: LIDOCAINE 2% 5 ML VIAL ONE (08:54)
[2020-10-09] MEDS ORDERED: ETOMIDATE 40 MG/20 ML VIAL IV ONE (08:54)
[2020-10-09] MEDS ORDERED: ALBUTEROL 2.5 MG/3 ML NEB RESP TX ONE (08:55)
[2020-10-09] MEDS ORDERED: METOPROLOL SUCCINATE XL 25 MG TABLET PO SCH (09:00)
[2020-10-09] MEDS ORDERED: amLODIPine 10 MG TABLET PO SCH (09:00)
[2020-10-09] MEDS ORDERED: PANTOPRAZOLE 40 MG TABLET PO SCH (09:00)
[2020-10-09 09:53] LABS: Folate 17.5 NG/ML (5.4-24.0)
[2020-10-09] MEDS ORDERED: SEVOFLURANE 1 UNIT/15 MINUTE INH ONE (09:59)
[2020-10-09] MEDS ORDERED: PHENYLEPHRINE 1 MG/10 ML SYRINGE IV ONE (09:59)
[2020-10-09] MEDS: LACTATED RINGERS 1,000 ML IV SCH (11:23)
[2020-10-09] MEDS ORDERED: METOPROLOL SUCCINATE XL 25 MG TABLET PO ONE (11:51)
[2020-10-09] MEDS: MORPHINE 4 MG/1 ML VIAL IV PRN ×2 (12:19→18:32)
[2020-10-09] MEDS: LATANOPROST 0.005% OPH SOLN 2.5 ML BOTTLE BOTH EYES SCH (21:15)
[2020-10-09] MEDS: MIRTAZAPINE 15 MG TABLET PO SCH (21:19)
[2020-10-09] MEDS: AMITRIPTYLINE 50 MG TABLET PO SCH (21:20)
[2020-10-09] MEDS: MELATONIN 3 MG TABLET PO SCH (21:26)
[2020-10-10] MEDS: PIPERACILLIN/TAZOBACTAM 3,375 MG in SODIUM CHLORIDE 0.9% 100 ML IV SCH ×3 (01:40→23:13)
[2020-10-10 06:37] LABS: Basophils % 0.2 % (0.0-0.8); Hematocrit 22.4 VOL% (35.7-47.0); Immature Granulocytes % 4.8 %; Immature Granulocytes Absolute 0.53 #; Lymphocytes % 8.9 % (21.3-54.2); Mean Corpuscular HGB Conc 31.7 GM/DL (32-36); Mean Corpuscular Volume 89.2 FL (87-102); Mean Platelet Volume 9.3 FL (9.6-12.0); Monocytes % 3.8 % (1.7-12.7); NRBC # 0.04 10*3/uL; Neutrophils % 82.3 % (38.7-73.9); Red Cell Distribution Width 17.5 % (9.3-17.3); White Blood Count 11.2 T/CUMM (4-12)
[2020-10-10 06:38] LABS: Hemoglobin 7.1 GM/DL (12.0-16.0); Platelet Count 190 T/CUMM (130-400); Red Blood Count 2.51 MC/CUMM (3.8-5.5)
[2020-10-10 06:55] LABS: Lymphocytes 7 % (20-55); Platelet Estimate Adequate; Segmented Neutrophils 87 % (50-85); Total Cells Counted 100
[2020-10-10 06:56] LABS: Hypochromasia 2+; Microcytosis 1+; Ovalocytes Slight
[2020-10-10] MEDS ORDERED: SODIUM CHLORIDE 0.9% 1,000 ML IV PRN (07:45)
[2020-10-10] MEDS: FERROUS SULFATE 325 MG TABLET PO SCH ×3 (08:00→18:09)
[2020-10-10] MEDS: busPIRone 5 MG TABLET PO SCH ×2 (08:00→20:50)
[2020-10-10] MEDS: POLYVINYL ALCOHOL 1.4% OPH SOLN 15 ML BOTTLE BOTH EYES SCH ×2 (08:00→22:53)
[2020-10-10] MEDS: INSULIN LISPRO 100 UNIT/ML SUBCUT SCH ×3 (08:00→18:10)
[2020-10-10] MEDS: ASCORBIC ACID 500 MG TABLET PO SCH (08:01)
[2020-10-10] MEDS: PREGABALIN 50 MG CAPSULE PO SCH ×2 (08:01→22:53)
[2020-10-10] MEDS: SODIUM HYPOCHLORITE 0.25% IRRIG 473 ML BOTTLE TOP SCH (08:01)
[2020-10-10] MEDS: predniSONE 10 MG TABLET PO SCH ×2 (08:01→20:57)
[2020-10-10] MEDS: PANTOPRAZOLE 40 MG TABLET PO SCH ×2 (08:01→20:50)
[2020-10-10] MEDS: ZIPRASIDONE 20 MG CAPSULE PO SCH ×2 (08:01→20:50)
[2020-10-10] MEDS: METOPROLOL SUCCINATE XL 50 MG TABLET PO SCH (08:01)
[2020-10-10] MEDS: FOLIC ACID 1 MG TABLET PO SCH (08:01)
[2020-10-10] MEDS: CYANOCOBALAMIN 500 MCG TABLET PO SCH (08:01)
[2020-10-10] MEDS: AMIODARONE 200 MG TABLET PO SCH (08:01)
[2020-10-10] MEDS ORDERED: FUROSEMIDE 20 MG/2 ML VIAL IV PRN (08:38)
[2020-10-10] MEDS: MIRTAZAPINE 15 MG TABLET PO SCH (20:50)
[2020-10-10] MEDS: AMITRIPTYLINE 50 MG TABLET PO SCH (20:50)
[2020-10-10] MEDS: MELATONIN 3 MG TABLET PO SCH (20:50)
[2020-10-10] MEDS: LATANOPROST 0.005% OPH SOLN 2.5 ML BOTTLE BOTH EYES SCH (20:58)
[2020-10-10] MEDS ORDERED: ROSUVASTATIN 10 MG TABLET PO SCH (21:00)
[2020-10-11 05:53] LABS: Basophils % 0.2 % (0.0-0.8); Hemoglobin 9.3 GM/DL (12.0-16.0); Immature Granulocytes % 5.1 %; Immature Granulocytes Absolute 0.62 #; Lymphocytes # 0.8 10*3/uL (1.4-4.0); Lymphocytes % 6.8 % (21.3-54.2); Mean Corpuscular HGB Conc 32.1 GM/DL (32-36); Mean Corpuscular Volume 89.2 FL (87-102); Mean Platelet Volume 9.6 FL (9.6-12.0); Monocytes % 4.1 % (1.7-12.7); NRBC # 0.08 10*3/uL; Neutrophils % 83.8 % (38.7-73.9); Platelet Count 178 T/CUMM (130-400); Red Blood Count 3.25 MC/CUMM (3.8-5.5); Red Cell Distribution Width 16.6 % (9.3-17.3); White Blood Count 12.1 T/CUMM (4-12)
[2020-10-11 06:29] LABS: Osmolality,Calculated 284.8 MOS/KG (273-304)
[2020-10-11] MEDS: PIPERACILLIN/TAZOBACTAM 3,375 MG in SODIUM CHLORIDE 0.9% 100 ML IV SCH (07:04)
[2020-10-11 07:41] LABS: Anisocytosis 2+; Band Neutrophils 9 % (0-10); Burr Cells Few; Lymphocytes 6 % (20-55); Metamyelocytes 2 %; Platelet Estimate Normal; Segmented Neutrophils 79 % (50-85); Total Cells Counted 100
[2020-10-11 07:42] LABS: Poikilocytosis 1+
[2020-10-11] MEDS: INSULIN LISPRO 100 UNIT/ML SUBCUT SCH ×2 (07:51→12:17)
[2020-10-11] MEDS: ASCORBIC ACID 500 MG TABLET PO SCH (08:17)
[2020-10-11] MEDS: METOPROLOL SUCCINATE XL 50 MG TABLET PO SCH (08:17)
[2020-10-11] MEDS: CYANOCOBALAMIN 500 MCG TABLET PO SCH (08:17)
[2020-10-11] MEDS: ZIPRASIDONE 20 MG CAPSULE PO SCH (08:18)
[2020-10-11] MEDS: predniSONE 10 MG TABLET PO SCH (08:18)
[2020-10-11] MEDS: FOLIC ACID 1 MG TABLET PO SCH (08:18)
[2020-10-11] MEDS: AMIODARONE 200 MG TABLET PO SCH (08:18)
[2020-10-11] MEDS: PANTOPRAZOLE 40 MG TABLET PO SCH (08:18)
[2020-10-11] MEDS: busPIRone 5 MG TABLET PO SCH (08:18)
[2020-10-11] MEDS: FERROUS SULFATE 325 MG TABLET PO SCH ×2 (08:18→12:17)
[2020-10-11] MEDS: POLYVINYL ALCOHOL 1.4% OPH SOLN 15 ML BOTTLE BOTH EYES SCH (08:18)
[2020-10-11] MEDS: PREGABALIN 50 MG CAPSULE PO SCH (08:19)
[2020-10-11] MEDS: MORPHINE 4 MG/1 ML VIAL IV PRN (10:40)
[2020-10-11] MEDS: SODIUM HYPOCHLORITE 0.25% IRRIG 473 ML BOTTLE TOP SCH (12:16)
[2020-10-11 16:39] VITALS: BP 108/51
== END 2020-10-11 16:03 | DRG 264 ==
LOC: N.OR 05:58 → N.SDSINP 06:00 → N.3E 14:08
PROVIDERS: ADMIT Surgery; ATTEND Surgery

== ENCOUNTER 2020-11-13 10:17 | Inpatient (IN) ==
[2020-11-13 11:08] LABS: Basophils % 0.3 % (0.0-0.8); Hematocrit 29.1 VOL% (35.7-47.0); Hemoglobin 9.4 GM/DL (12.0-16.0); Immature Granulocytes % 1.9 %; Immature Granulocytes Absolute 0.26 #; Lymphocytes # 0.7 10*3/uL (1.4-4.0); Lymphocytes % 4.8 % (21.3-54.2); Mean Corpuscular HGB Conc 32.3 GM/DL (32-36); Mean Corpuscular Volume 86.4 FL (87-102); Mean Platelet Volume 11.3 FL (9.6-12.0); Monocytes % 4.9 % (1.7-12.7); NRBC # 0.24 10*3/uL; Neutrophils % 88.1 % (38.7-73.9); Platelet Count 102 T/CUMM (130-400); Red Blood Count 3.37 MC/CUMM (3.8-5.5); Red Cell Distribution Width 19.2 % (9.3-17.3)
[2020-11-13 11:21] LABS: Band Neutrophils 4 % (0-10); Burr Cells Slight; Hypochromasia 1+; Lymphocytes 7 % (20-55); Nucleated Red Blood Cells 1 (0-5); Ovalocytes Slight; Platelet Estimate Decreased; Segmented Neutrophils 85 % (50-85); Total Cells Counted 100
[2020-11-13 11:22] LABS: Microcytosis Slight
[2020-11-13 11:43] LABS: Albumin 1.4 G/DL (3.4-5.0); Bilirubin,Total 0.5 MG/DL (0.2-1.0); Calcium 8.8 MG/DL (8.5-10.1); Osmolality,Calculated 326.3 MOS/KG (273-304); Total Protein 6.3 G/DL (6.4-8.3)
[2020-11-13] MEDS ORDERED: SODIUM CHLORIDE 0.9% 1,000 ML IV STA (12:13)
[2020-11-13 12:21] LABS: Bacteria,Urine Many /HPF (Few); Bilirubin,Urine Negative (Negative); Blood, Urine Large mg/dL (Negative); Glucose,Urine (UA) Negative (Negative); Ketones,Urine Negative (Negative); Mucus,Urine Few /LPF (Occasional); Nitrite,Urine Negative (Negative); Protein,Urine 100 MG/DL; RBC,Urine 119 /HPF (0-4); Squamous Epithelial Cell,Urine Occasional /HPF (0-10); Urine Appearance CLOUDY (Clear); Urine Color Yellow (Yellow); Urine Specific Gravity 1.014 (1.001-1.035); Urine Urobilinogen < 2.0 EU/DL (0.2-1.0); WBC,Urine 1787 /HPF (0-6)
[2020-11-13] MEDS ORDERED: ACETAMINOPHEN 325 MG TABLET PO PRN (13:36)
[2020-11-13] MEDS ORDERED: ONDANSETRON 4 MG/2 ML VIAL IV PRN (13:36)
[2020-11-13] MEDS ORDERED: hydrALAZINE 20 MG/1 ML VIAL IV PRN (13:36)
[2020-11-13] MEDS ORDERED: DOCUSATE SODIUM 100 MG CAPSULE PO PRN (13:36)
[2020-11-13] MEDS ORDERED: GLUCAGON 1 MG VIAL IM PRN (13:36)
[2020-11-13] MEDS: cefTRIAXone 1,000 MG in SYRINGE 1 EACH IV SCH (16:16)
[2020-11-13] MEDS: SODIUM BICARB INJ 50 MEQ in SODIUM CHLORIDE 0.45% 1,000 ML IV SCH (16:17)
[2020-11-13] MEDS: INSULIN REGULAR 100 UNIT/ML SUBCUT SCH ×2 (18:20→21:21)
[2020-11-13] MEDS ORDERED: HYDROmorphone 2 MG/1 ML VIAL IM PRN (18:30)
[2020-11-13 20:31] LABS: Calcium 8.5 MG/DL (8.5-10.1); Osmolality,Calculated 335.7 MOS/KG (273-304)
[2020-11-13] MEDS ORDERED: INSULIN GLARGINE 100 UNIT/ML SUBCUT SCH (21:00)
[2020-11-13] MEDS: POLYVINYL ALCOHOL 1.4% OPH SOLN 15 ML BOTTLE BOTH EYES SCH (21:18)
[2020-11-13] MEDS: LINEZOLID INJ 600 MG in PREMIX 1 EACH IV SCH (21:19)
[2020-11-13] MEDS: LATANOPROST 0.005% OPH SOLN 2.5 ML BOTTLE BOTH EYES SCH (21:19)
[2020-11-13] MEDS: FERROUS SULFATE 325 MG TABLET PO SCH (21:22)
[2020-11-13] MEDS: predniSONE 10 MG TABLET PO SCH (21:23)
[2020-11-13] MEDS: MIRTAZAPINE 15 MG TABLET PO SCH (21:24)
[2020-11-13] MEDS: PANTOPRAZOLE 40 MG TABLET PO SCH (21:24)
[2020-11-13] MEDS: MAGNESIUM CHLORIDE 64 MG TABLET PO SCH (21:25)
[2020-11-14] MEDS: SODIUM BICARB INJ 50 MEQ in SODIUM CHLORIDE 0.45% 1,000 ML IV SCH (02:50)
[2020-11-14 05:41] LABS: Basophils % 0.3 % (0.0-0.8); Eosinophils % 0.1 % (0.00-10.9); Hematocrit 25.5 VOL% (35.7-47.0); Hemoglobin 8.2 GM/DL (12.0-16.0); Immature Granulocytes % 1.8 %; Lymphocytes # 0.6 10*3/uL (1.4-4.0); Lymphocytes % 5.4 % (21.3-54.2); Mean Corpuscular HGB Conc 32.2 GM/DL (32-36); Mean Corpuscular Volume 85.3 FL (87-102); Mean Platelet Volume 9.9 FL (9.6-12.0); NRBC # 0.25 10*3/uL; Neutrophils % 89.4 % (38.7-73.9); Red Blood Count 2.99 MC/CUMM (3.8-5.5); White Blood Count 10.8 T/CUMM (4-12)
[2020-11-14 05:45] LABS: Platelet Count 81 T/CUMM (130-400)
[2020-11-14 06:00] LABS: Calcium 8.6 MG/DL (8.5-10.1); Risk Ratio 9.56; VLDL CHOLESTEROL 40.2 MG/DL
[2020-11-14 06:40] LABS: Band Neutrophils 3 % (0-10); Lymphocytes 2 % (20-55); Metamyelocytes 1 %; Nucleated Red Blood Cells 1 (0-5); Platelet Estimate Decreased; Segmented Neutrophils 89 % (50-85); Total Cells Counted 100
[2020-11-14] MEDS: DEXTROSE 50% 25 GM/50 ML VIAL IV PRN ×4 (07:55→16:45)
[2020-11-14] MEDS ORDERED: ERGOCALCIFEROL 50,000 UNIT CAPSULE PO SCH (09:00)
[2020-11-14] MEDS ORDERED: METOPROLOL SUCCINATE XL 50 MG TABLET PO SCH (09:00)
[2020-11-14] MEDS ORDERED: fentaNYL 100 MCG/2 ML VIAL ONE (09:47)
[2020-11-14] MEDS ORDERED: ROCURONIUM 50 MG/5 ML VIAL IV ONE (09:47)
[2020-11-14] MEDS ORDERED: LIDOCAINE 2% 5 ML VIAL ONE (09:47)
[2020-11-14] MEDS ORDERED: ETOMIDATE 40 MG/20 ML VIAL IV ONE (09:47)
[2020-11-14] MEDS ORDERED: propofoL 200 MG/20 ML VIAL IV ONE (09:48)
[2020-11-14] MEDS ORDERED: PHENYLEPHRINE 1 MG/10 ML SYRINGE IV ONE (10:12)
[2020-11-14] MEDS ORDERED: EPINEPHrine 1 MG/ML VIAL ONE (10:17)
[2020-11-14] MEDS ORDERED: KETAMINE 500 MG/10 ML VIAL ONE (10:27)
[2020-11-14] MEDS ORDERED: PHENYLEPHRINE 10 MG/1 ML VIAL IV ONE (10:29)
[2020-11-14] MEDS ORDERED: MIDAZOLAM 2 MG/2 ML VIAL ONE (10:52)
[2020-11-14] MEDS ORDERED: VASOPRESSIN 20 UNITS/ML VIAL ONE ×2 (10:59→11:00)
[2020-11-14] MEDS ORDERED: SEVOFLURANE 1 UNIT/15 MINUTE INH ONE (11:29)
[2020-11-14] MEDS ORDERED: SUGAMMADEX 200 MG/2 ML VIAL IV ONE (11:40)
[2020-11-14 12:43] LABS: Basophils % 0.2 % (0.0-0.8); Hemoglobin 7.8 GM/DL (12.0-16.0); Immature Granulocytes % 1.8 %; Immature Granulocytes Absolute 0.23 #; Lymphocytes # 0.4 10*3/uL (1.4-4.0); Lymphocytes % 3.2 % (21.3-54.2); Mean Corpuscular HGB Conc 31.2 GM/DL (32-36); Mean Corpuscular Volume 87.4 FL (87-102); Mean Platelet Volume 11.2 FL (9.6-12.0); Monocytes % 2.8 % (1.7-12.7); NRBC # 0.24 10*3/uL; Platelet Count 73 T/CUMM (130-400); Red Blood Count 2.86 MC/CUMM (3.8-5.5); Red Cell Distribution Width 19.2 % (9.3-17.3)
[2020-11-14 13:08] LABS: Band Neutrophils 35 % (0-10); Burr Cells 2+; Lymphocytes 3 % (20-55); Metamyelocytes 1 %; Nucleated Red Blood Cells 8 (0-5); Platelet Estimate Decreased; Poikilocytosis 1+; Segmented Neutrophils 60 % (50-85); Total Cells Counted 100
[2020-11-14 13:09] LABS: Anisocytosis 2+; Ovalocytes Few
[2020-11-14] MEDS ORDERED: NOREPINEPHRINE 8 MG in SODIUM CHLORIDE 0.9% 242 ML IV PRN (13:09)
[2020-11-14] MEDS ORDERED: DEXTROSE 50% 25 GM/50 ML VIAL IV ONE (13:11)
[2020-11-14] MEDS ORDERED: SODIUM CHLORIDE 0.9% 1,000 ML IV PRN (13:21)
[2020-11-14] MEDS ORDERED: SODIUM CHLORIDE 0.9% 1,000 ML IV ONE (13:30)
[2020-11-14] MEDS: INSULIN REGULAR 100 UNIT/ML SUBCUT SCH ×4 (16:55→21:52)
[2020-11-14] MEDS: POLYVINYL ALCOHOL 1.4% OPH SOLN 15 ML BOTTLE BOTH EYES SCH ×2 (16:56→22:08)
[2020-11-14] MEDS: LINACLOTIDE 145 MCG CAPSULE PO SCH (16:56)
[2020-11-14] MEDS: MULTIVITAMIN (CENTRUM) TABLET PO SCH (16:56)
[2020-11-14] MEDS: FERROUS SULFATE 325 MG TABLET PO SCH ×2 (16:57→22:09)
[2020-11-14] MEDS: AMIODARONE 200 MG TABLET PO SCH (16:57)
[2020-11-14] MEDS: FOLIC ACID 1 MG TABLET PO SCH (16:57)
[2020-11-14] MEDS: predniSONE 10 MG TABLET PO SCH ×2 (16:57→22:09)
[2020-11-14] MEDS: MAGNESIUM CHLORIDE 64 MG TABLET PO SCH ×2 (16:58→22:08)
[2020-11-14] MEDS: ASCORBIC ACID 500 MG TABLET PO SCH (16:58)
[2020-11-14] MEDS: LINEZOLID INJ 600 MG in PREMIX 1 EACH IV SCH ×2 (16:58→21:55)
[2020-11-14] MEDS: PANTOPRAZOLE 40 MG TABLET PO SCH ×2 (16:58→22:08)
[2020-11-14] MEDS: CYANOCOBALAMIN 500 MCG TABLET PO SCH (16:58)
[2020-11-14] MEDS: cefTRIAXone 1,000 MG in SYRINGE 1 EACH IV SCH ×2 (16:58→23:47)
[2020-11-14 17:21] LABS: Calcium 7.6 MG/DL (8.5-10.1); Osmolality,Calculated 338.8 MOS/KG (273-304)
[2020-11-14 22:00] LABS: Hematocrit 30.5 VOL% (35.7-47.0)
[2020-11-14 22:01] LABS: Hemoglobin 9.6 GM/DL (12.0-16.0)
[2020-11-14] MEDS: LATANOPROST 0.005% OPH SOLN 2.5 ML BOTTLE BOTH EYES SCH (22:01)
[2020-11-14] MEDS: MIRTAZAPINE 15 MG TABLET PO SCH (22:08)
[2020-11-14] MEDS: SODIUM BICARB INJ 150 MEQ in STERILE WATER INJ 850 ML IV SCH (23:45)
[2020-11-15] MEDS: SODIUM BICARB INJ 150 MEQ in STERILE WATER INJ 850 ML IV SCH ×3 (03:00→17:33)
[2020-11-15 07:02] LABS: Basophils % 0.3 % (0.0-0.8); Eosinophils % 0.1 % (0.00-10.9); Hematocrit 26.6 VOL% (35.7-47.0); Hemoglobin 8.8 GM/DL (12.0-16.0); Immature Granulocytes % 2.1 %; Immature Granulocytes Absolute 0.23 #; Lymphocytes # 0.7 10*3/uL (1.4-4.0); Lymphocytes % 6.3 % (21.3-54.2); Mean Corpuscular HGB Conc 33.1 GM/DL (32-36); Mean Corpuscular Volume 84.4 FL (87-102); Monocytes % 4.2 % (1.7-12.7); NRBC # 0.15 10*3/uL; Red Blood Count 3.15 MC/CUMM (3.8-5.5); Red Cell Distribution Width 18.4 % (9.3-17.3); White Blood Count 10.9 T/CUMM (4-12)
[2020-11-15 07:03] LABS: Platelet Count 44 T/CUMM (130-400)
[2020-11-15 07:23] LABS: Band Neutrophils 3 % (0-10); Hypochromasia 1+; Lymphocytes 4 % (20-55); Microcytosis 1+; Nucleated Red Blood Cells 4 (0-5); Platelet Estimate Decreased; Segmented Neutrophils 89 % (50-85); Total Cells Counted 100
[2020-11-15 07:31] LABS: Calcium 7.5 MG/DL (8.5-10.1); Osmolality,Calculated 332.7 MOS/KG (273-304)
[2020-11-15] MEDS ORDERED: MAGNESIUM SULF RIDER 2 GM in PREMIX 1 EACH IV PRN (08:31)
[2020-11-15] MEDS ORDERED: MAGNESIUM SULF RIDER 4 GM in PREMIX 1 EACH IV PRN (08:31)
[2020-11-15] MEDS: cefTRIAXone 1,000 MG in SYRINGE 1 EACH IV SCH (08:53)
[2020-11-15] MEDS: LINEZOLID INJ 600 MG in PREMIX 1 EACH IV SCH ×2 (08:54→09:07)
[2020-11-15] MEDS: INSULIN REGULAR 100 UNIT/ML SUBCUT SCH ×4 (10:14→22:58)
[2020-11-15] MEDS: POLYVINYL ALCOHOL 1.4% OPH SOLN 15 ML BOTTLE BOTH EYES SCH ×2 (10:16→23:38)
[2020-11-15] MEDS: LINACLOTIDE 145 MCG CAPSULE PO SCH (10:16)
[2020-11-15] MEDS: MULTIVITAMIN (CENTRUM) TABLET PO SCH (10:18)
[2020-11-15] MEDS: AMIODARONE 200 MG TABLET PO SCH (10:20)
[2020-11-15] MEDS: FERROUS SULFATE 325 MG TABLET PO SCH ×3 (10:21→23:39)
[2020-11-15] MEDS: PANTOPRAZOLE 40 MG TABLET PO SCH ×2 (10:21→23:39)
[2020-11-15] MEDS: FOLIC ACID 1 MG TABLET PO SCH (10:21)
[2020-11-15] MEDS: predniSONE 10 MG TABLET PO SCH ×2 (10:21→23:39)
[2020-11-15] MEDS: ASCORBIC ACID 500 MG TABLET PO SCH (10:22)
[2020-11-15] MEDS: CYANOCOBALAMIN 500 MCG TABLET PO SCH (10:22)
[2020-11-15] MEDS: MAGNESIUM CHLORIDE 64 MG TABLET PO SCH ×2 (10:22→23:38)
[2020-11-15] MEDS: SODIUM HYPOCHLORITE 0.25% IRRIG 473 ML BOTTLE TOP SCH (10:23)
[2020-11-15] MEDS: SKIN HEALING OINT (AQUAPHOR) 50 GM TUBE TOP PRN (13:18)
[2020-11-15] MEDS: LATANOPROST 0.005% OPH SOLN 2.5 ML BOTTLE BOTH EYES SCH (23:01)
[2020-11-15] MEDS: MIRTAZAPINE 15 MG TABLET PO SCH (23:38)
[2020-11-16 06:28] LABS: Calcium 7.1 MG/DL (8.5-10.1); Osmolality,Calculated 325.7 MOS/KG (273-304)
[2020-11-16] MEDS: SODIUM BICARB INJ 150 MEQ in STERILE WATER INJ 850 ML IV SCH (07:43)
[2020-11-16] MEDS: METHYL SALICYLATE 60 ML BOTTLE TOP SCH (09:06)
[2020-11-16] MEDS: SODIUM HYPOCHLORITE 0.25% IRRIG 473 ML BOTTLE TOP SCH (09:38)
[2020-11-16] MEDS: SKIN HEALING OINT (AQUAPHOR) 50 GM TUBE TOP PRN (09:38)
[2020-11-16] MEDS: POLYVINYL ALCOHOL 1.4% OPH SOLN 15 ML BOTTLE BOTH EYES SCH ×2 (09:38→20:12)
[2020-11-16] MEDS: LINACLOTIDE 145 MCG CAPSULE PO SCH (09:39)
[2020-11-16] MEDS: MULTIVITAMIN (CENTRUM) TABLET PO SCH (09:39)
[2020-11-16] MEDS: AMIODARONE 200 MG TABLET PO SCH (09:39)
[2020-11-16] MEDS: predniSONE 10 MG TABLET PO SCH ×2 (09:39→20:18)
[2020-11-16] MEDS: FOLIC ACID 1 MG TABLET PO SCH (09:39)
[2020-11-16] MEDS: FERROUS SULFATE 325 MG TABLET PO SCH ×3 (09:39→20:17)
[2020-11-16] MEDS: PANTOPRAZOLE 40 MG TABLET PO SCH ×2 (09:40→20:17)
[2020-11-16] MEDS: MAGNESIUM CHLORIDE 64 MG TABLET PO SCH ×2 (09:40→20:17)
[2020-11-16] MEDS: CYANOCOBALAMIN 500 MCG TABLET PO SCH (09:40)
[2020-11-16] MEDS: ASCORBIC ACID 500 MG TABLET PO SCH (09:40)
[2020-11-16] MEDS: INSULIN REGULAR 100 UNIT/ML SUBCUT SCH ×4 (09:41→20:11)
[2020-11-16] MEDS: MEROPENEM 500 MG in SODIUM CHLORIDE 0.9% 100 ML IV SCH (13:00)
[2020-11-16] MEDS ORDERED: POTASSIUM CHLORIDE 10 MEQ TABLET PO ONE (17:46)
[2020-11-16] MEDS: LATANOPROST 0.005% OPH SOLN 2.5 ML BOTTLE BOTH EYES SCH (20:11)
[2020-11-16] MEDS: MIRTAZAPINE 15 MG TABLET PO SCH (20:17)
[2020-11-17] MEDS: MEROPENEM 500 MG in SODIUM CHLORIDE 0.9% 100 ML IV SCH (02:38)
[2020-11-17 07:17] LABS: Calcium 7.6 MG/DL (8.5-10.1); Osmolality,Calculated 325.7 MOS/KG (273-304)
[2020-11-17] MEDS: INSULIN REGULAR 100 UNIT/ML SUBCUT SCH ×3 (07:54→16:01)
[2020-11-17] MEDS: LINACLOTIDE 145 MCG CAPSULE PO SCH (07:55)
[2020-11-17] MEDS ORDERED: SODIUM BICARBONATE 50 MEQ/50 ML SYRINGE IV ONE (08:49)
[2020-11-17] MEDS ORDERED: SODIUM BICARB INJ 50 MEQ in SODIUM CHLORIDE 0.45% 1,000 ML IV SCH (09:00)
[2020-11-17] MEDS: AMIODARONE 200 MG TABLET PO SCH (09:17)
[2020-11-17] MEDS: MULTIVITAMIN (CENTRUM) TABLET PO SCH (09:17)
[2020-11-17] MEDS: METHYL SALICYLATE 60 ML BOTTLE TOP SCH (09:18)
[2020-11-17] MEDS: PANTOPRAZOLE 40 MG TABLET PO SCH (09:18)
[2020-11-17] MEDS: MAGNESIUM CHLORIDE 64 MG TABLET PO SCH (09:18)
[2020-11-17] MEDS: predniSONE 10 MG TABLET PO SCH (09:18)
[2020-11-17] MEDS: FERROUS SULFATE 325 MG TABLET PO SCH ×2 (09:18→16:02)
[2020-11-17] MEDS: CYANOCOBALAMIN 500 MCG TABLET PO SCH (09:18)
[2020-11-17] MEDS: ASCORBIC ACID 500 MG TABLET PO SCH (09:18)
[2020-11-17] MEDS: FOLIC ACID 1 MG TABLET PO SCH (09:18)
[2020-11-17] MEDS: POLYVINYL ALCOHOL 1.4% OPH SOLN 15 ML BOTTLE BOTH EYES SCH ×2 (09:19→21:24)
[2020-11-17] MEDS: SODIUM HYPOCHLORITE 0.25% IRRIG 473 ML BOTTLE TOP SCH (09:19)
[2020-11-17] MEDS ORDERED: MORPHINE 4 MG/1 ML VIAL IV PRN (16:09)
[2020-11-17] MEDS ORDERED: LORazepam 2 MG/1 ML VIAL IV PRN (16:09)
[2020-11-17] MEDS ORDERED: ACETAMINOPHEN 650 MG SUPP RECTAL PRN (16:13)
[2020-11-17] MEDS: LATANOPROST 0.005% OPH SOLN 2.5 ML BOTTLE BOTH EYES SCH (21:24)
[2020-11-18] MEDS: POLYVINYL ALCOHOL 1.4% OPH SOLN 15 ML BOTTLE BOTH EYES SCH ×2 (08:21→20:55)
[2020-11-18] MEDS: METHYL SALICYLATE 60 ML BOTTLE TOP SCH (08:21)
[2020-11-18] MEDS: SODIUM HYPOCHLORITE 0.25% IRRIG 473 ML BOTTLE TOP SCH (08:21)
[2020-11-18] MEDS: LATANOPROST 0.005% OPH SOLN 2.5 ML BOTTLE BOTH EYES SCH (20:55)
[2020-11-19] MEDS: SODIUM HYPOCHLORITE 0.25% IRRIG 473 ML BOTTLE TOP SCH (09:43)
[2020-11-19] MEDS: POLYVINYL ALCOHOL 1.4% OPH SOLN 15 ML BOTTLE BOTH EYES SCH ×2 (09:43→22:36)
[2020-11-19] MEDS: METHYL SALICYLATE 60 ML BOTTLE TOP SCH (09:44)
[2020-11-19] MEDS: LATANOPROST 0.005% OPH SOLN 2.5 ML BOTTLE BOTH EYES SCH (22:36)
[2020-11-20 08:03] VITALS: BP 63/27
[2020-11-20] MEDS: SODIUM HYPOCHLORITE 0.25% IRRIG 473 ML BOTTLE TOP SCH (10:37)
[2020-11-20] MEDS: METHYL SALICYLATE 60 ML BOTTLE TOP SCH (10:37)
[2020-11-20] MEDS: POLYVINYL ALCOHOL 1.4% OPH SOLN 15 ML BOTTLE BOTH EYES SCH ×2 (10:37→22:12)
[2020-11-20] MEDS ORDERED: TUBERCULIN SKIN TEST 0.1 ML SYRINGE INTRADERM ONE (15:00)
[2020-11-20] MEDS: LATANOPROST 0.005% OPH SOLN 2.5 ML BOTTLE BOTH EYES SCH (22:12)
[2020-11-21] MEDS: SODIUM HYPOCHLORITE 0.25% IRRIG 473 ML BOTTLE TOP SCH (11:00)
[2020-11-21] MEDS: METHYL SALICYLATE 60 ML BOTTLE TOP SCH (11:00)
[2020-11-21] MEDS: POLYVINYL ALCOHOL 1.4% OPH SOLN 15 ML BOTTLE BOTH EYES SCH (11:00)
== END 2020-11-21 11:55 | disposition hospice, inpatient (51) | DRG 853 ==
LOC: EDUNIT# → N.ED 10:17 → SUATTDRO 13:35 → N.EDINP 13:35 → N.5E 15:01
PROVIDERS: ADMIT Internal Medicine; ATTEND Family Medicine